=== PATIENT | female | born 1980 | race Caucasian/White ===

== ENCOUNTER 2020-11-11 16:36 | Emergency (ER) | payer MEDICAID ==
[~2020-11-11] VITALS: Ht 165.1 cm; Wt 73.9 kg
[2020-11-11] MEDS ORDERED: MORPHINE SULFATE 4 MG/ML SYR/VIAL IV ONE (16:45)
[2020-11-11] MEDS ORDERED: ONDANSETRON HCL 4 MG/2 ML VIAL IV ONE (16:45)
[2020-11-11] MEDS ORDERED: ASPirin 81 mg TAB PO ONE (16:45)
[2020-11-11 17:10] LABS: Basophils # (auto) 0.1 10 ^3/uL (0-0.2); Basophils % (auto) 1.2 % (0.0-2.0); Eosinophils # (auto) 0.1 10 ^3/uL (0-0.8); Eosinophils % (auto) 2.1 % (0.0-7.0); Hematocrit 35.6 % (36.0-46.0); Hemoglobin 11.8 g/dL (12.2-16.2); Lymphocytes # (auto) 1.3 10 ^3/uL (0.4-5.4); Lymphocytes % (auto) 26.6 % (10.0-50.0); Mean Corpuscular Hemoglobin 27.9 pg (28.0-32.0); Mean Corpuscular Hgb Conc. 33.1 g/dL (32.0-36.0); Mean Corpuscular Volume 84.1 fL (80.0-100.0); Monocytes # (auto) 0.3 10 ^3/uL (0-1.3); Monocytes % (auto) 6.8 % (0.0-12.0); Neutrophils # (auto) 3.2 10 ^3/uL (1.6-8.6); Neutrophils % (auto) 63.3 % (37.0-80.0); Nucleated Red Blood Cells % 0.1 %; Red Blood Cells 4.23 10^6/uL (4.0-5.20); Red Cell Distribution Width 16.9 % (11.8-14.3); White Blood Cell 5.1 10^3/uL (4.4-10.8)
[2020-11-11 17:28] LABS: Anion Gap 3 (5-15); Blood Urea Nitrogen 11 mg/dL (7-18); Calcium 9.3 mg/dL (8.5-10.1); Carbon Dioxide 29 mmol/L (21-32); Chloride 105 mmol/L (98-107); Glucose 104 mg/dL (74-106); Potassium 3.4 mmol/L (3.5-5.1); Sodium 137 mmol/L (136-145)
[2020-11-11 17:33] LABS: Alanine Aminotransferase 23 U/L (13-56); Alkaline Phosphatase 48 U/L (45-117); Aspartate Aminotransferase 16 U/L (15-37); BUN/Creatinine Ratio 10.6; Bilirubin, Total 0.2 mg/dL (0.2-1.0); GFR African American 75 mL/min; GFR Non-African American 62 mL/min
[2020-11-11] MEDS ORDERED: POTASSIUM EFFERVESENT TAB 25 MEQ PO ONE (17:45)
[2020-11-11 18:13] VITALS: BP 138/82
== END 2020-11-11 18:20 | disposition home or self-care (01) ==
LOC: ER 16:36
DX: R07.89 Other chest pain (principal); I10 Essential (primary) hypertension
CPT/HCPCS: 36415; 80053; 84484; 85025; 93005

== ENCOUNTER 2020-11-28 13:02 | Inpatient (IN) | payer MEDICAID ==
[~2020-11-28] VITALS: Ht 165.1 cm; Wt 80.2 kg
[2020-11-28 14:07] LABS: Basophils # (auto) 0.1 10 ^3/uL (0-0.2); Basophils % (auto) 0.9 % (0.0-2.0); Eosinophils # (auto) 0.1 10 ^3/uL (0-0.8); Eosinophils % (auto) 1.5 % (0.0-7.0); Hematocrit 37.5 % (36.0-46.0); Hemoglobin 12.4 g/dL (12.2-16.2); Lymphocytes # (auto) 1.5 10 ^3/uL (0.4-5.4); Lymphocytes % (auto) 22.5 % (10.0-50.0); Mean Corpuscular Hemoglobin 27.3 pg (28.0-32.0); Mean Corpuscular Volume 82.8 fL (80.0-100.0); Monocytes # (auto) 0.4 10 ^3/uL (0-1.3); Monocytes % (auto) 5.7 % (0.0-12.0); Neutrophils # (auto) 4.5 10 ^3/uL (1.6-8.6); Neutrophils % (auto) 69.4 % (37.0-80.0); Red Blood Cells 4.53 10^6/uL (4.0-5.20); Red Cell Distribution Width 16.8 % (11.8-14.3); White Blood Cell 6.5 10^3/uL (4.4-10.8)
[2020-11-28 14:18] LABS: Alanine Aminotransferase 30 U/L (13-56); Albumin 3.4 g/dL (3.4-5.0); Anion Gap 5 (5-15); Blood Urea Nitrogen 18 mg/dL (7-18); Carbon Dioxide 29 mmol/L (21-32); Chloride 105 mmol/L (98-107); Glucose 85 mg/dL (74-106); Potassium 4.1 mmol/L (3.5-5.1); Sodium 139 mmol/L (136-145)
[2020-11-28 14:23] LABS: Alkaline Phosphatase 60 U/L (45-117); Aspartate Aminotransferase 19 U/L (15-37); BUN/Creatinine Ratio 17.8; Bilirubin, Total 0.2 mg/dL (0.2-1.0); GFR African American 77 mL/min; GFR Non-African American 64 mL/min; Total Protein 7.8 g/dL (6.4-8.2)
[2020-11-28] MEDS ORDERED: ACETAMINOPHEN 325 MG TAB PO ONE (21:00)
[2020-11-28 21:17] LABS: Urine Bacteria FEW /hpf (None Seen); Urine Blood Negative /uL (Negative); Urine Mucus FEW (None Seen); Urine Specific Gravity 1.029 (1.001-1.035); Urine WBC 11 /hpf (0 - 5)
[2020-11-28] MEDS ORDERED: NITROGLYCERIN 0.4 MG SL TAB SL PRN (23:15)
[2020-11-28] MEDS ORDERED: ONDANSETRON HCL 4 MG/2 ML VIAL IV PRN (23:15)
[2020-11-28] MEDS ORDERED: DOCUSATE SOD 100 MG CAP PO PRN (23:15)
[2020-11-28] MEDS ORDERED: ACETAMINOPHEN 325 MG TAB PO PRN (23:15)
[2020-11-29 01:00] VITALS: BP 120/82
[2020-11-29] MEDS: HYDROmorphone HCL 2 MG/ML VL IV PRN ×4 (03:05→21:46)
[2020-11-29 05:00] VITALS: BP 137/78
[2020-11-29] MEDS: hydrALAZINE HCL 20 MG/ML VL IV SCH ×2 (06:00)
[2020-11-29 06:23] LABS: Basophils # (auto) 0 10 ^3/uL (0-0.2); Basophils % (auto) 0.7 % (0.0-2.0); Eosinophils # (auto) 0.1 10 ^3/uL (0-0.8); Eosinophils % (auto) 1.7 % (0.0-7.0); Hematocrit 33.2 % (36.0-46.0); Hemoglobin 11.1 g/dL (12.2-16.2); Lymphocytes # (auto) 2.1 10 ^3/uL (0.4-5.4); Lymphocytes % (auto) 30.2 % (10.0-50.0); Mean Corpuscular Hemoglobin 28.1 pg (28.0-32.0); Mean Corpuscular Hgb Conc. 33.4 g/dL (32.0-36.0); Monocytes # (auto) 0.4 10 ^3/uL (0-1.3); Monocytes % (auto) 6.2 % (0.0-12.0); Neutrophils # (auto) 4.2 10 ^3/uL (1.6-8.6); Neutrophils % (auto) 61.2 % (37.0-80.0); Nucleated Red Blood Cells % 0.1 %; Red Blood Cells 3.95 10^6/uL (4.0-5.20); Red Cell Distribution Width 16.6 % (11.8-14.3); White Blood Cell 6.9 10^3/uL (4.4-10.8)
[2020-11-29] MEDS ORDERED: HYDR25TA4 PO (06:48)
[2020-11-29 06:58] LABS: Potassium 3.6 mmol/L (3.5-5.1)
[2020-11-29 07:06] LABS: BUN/Creatinine Ratio 15.7; Bilirubin, Total 0.4 mg/dL (0.2-1.0); Calcium 9.1 mg/dL (8.5-10.1); Total Protein 6.6 g/dL (6.4-8.2)
[2020-11-29] MEDS ORDERED: ADENOSINE 65 MG in GIVE UN-DILUTED 0 ML IV STA (07:43)
[2020-11-29 08:57] LABS: Barbiturate Scree,Urine NEGATIVE (NEGATIVE); Benzodiazephine Screen, Urine NEGATIVE (NEGATIVE); Cannabinoid Screen, Urine POSITIVE (NEGATIVE)
[2020-11-29 09:00] VITALS: BP 120/83
[2020-11-29 09:04] LABS: Amphetamine Screen, Urine NEGATIVE (NEGATIVE); Cocaine Screen, Urine NEGATIVE (NEGATIVE); Opiate Scree,Urine NEGATIVE (NEGATIVE); Phencyclidine Screen, Urine NEGATIVE (NEGATIVE)
[2020-11-29] MEDS: ENOXAPARIN SOD 30 MG/0.3 ML SYRINGE SC SCH (10:00)
[2020-11-29] MEDS: ASPirin 81 mg TAB PO SCH (10:30)
[2020-11-29] MEDS: ZINC SULFATE 220mg CAP or TAB PO SCH (10:30)
[2020-11-29] MEDS: HCTZ 25 MG TAB PO SCH (10:30)
[2020-11-29] MEDS: cefTRIAXone 1GM/50ML D5W 50 ML IV SCH (10:30)
[2020-11-29] MEDS: FAMOTIDINE (10MG/ML) 2ML VL IV SCH ×2 (10:30→21:46)
[2020-11-29] MEDS: MULTIPLE VITAMIN TAB PO SCH (10:30)
[2020-11-29] MEDS: ASCORBIC ACID 500 MG TAB PO SCH ×2 (10:30→21:46)
[2020-11-29] MEDS ORDERED: hydrALAZINE HCL 20 MG/ML VL IV PRN (11:30)
[2020-11-29 12:50] VITALS: BP 154/89
[2020-11-29 21:30] VITALS: BP 125/95
[2020-11-29] MEDS ORDERED: ATORVASTATIN 20 MG TAB PO SCH (22:00)
[2020-11-30 05:53] VITALS: BP 135/79
[2020-11-30 08:00] VITALS: BP 135/92
[2020-11-30 09:00] VITALS: BP 135/92
[2020-11-30] MEDS: cefTRIAXone 1GM/50ML D5W 50 ML IV SCH (09:20)
[2020-11-30] MEDS: ASPirin 81 mg TAB PO SCH (09:20)
[2020-11-30] MEDS: FAMOTIDINE (10MG/ML) 2ML VL IV SCH (09:20)
[2020-11-30] MEDS: ZINC SULFATE 220mg CAP or TAB PO SCH (09:21)
[2020-11-30] MEDS: MULTIPLE VITAMIN TAB PO SCH (09:23)
[2020-11-30] MEDS: ASCORBIC ACID 500 MG TAB PO SCH (09:23)
[2020-11-30] MEDS: ENOXAPARIN SOD 30 MG/0.3 ML SYRINGE SC SCH (09:23)
[2020-11-30] MEDS: HCTZ 25 MG TAB PO SCH (09:23)
[2020-11-30] MEDS: HYDROmorphone HCL 2 MG/ML VL IV PRN (09:50)
[2020-11-30 13:00] VITALS: BP 124/92
[2020-11-30 14:55] VITALS: BP 124/92
== END 2020-11-30 16:00 | disposition home or self-care (01) | DRG 203 ==
LOC: EDBD 13:02 → ER 13:02 → TELE 23:04 → TELE-WESTW 11-29 00:19
PROVIDERS: ADMIT Nurse Practitioner Family; ATTEND Family Medicine
DX: R07.89 Other chest pain (principal); F12.90 Cannabis use, unspecified, uncomplicated; R00.2 Palpitations; I10 Essential (primary) hypertension; N39.0 Urinary tract infection, site not specified; Z20.822 Contact with and (suspected) exposure to COVID-19; Z88.5 Allergy status to narcotic agent; Z72.0 Tobacco use; Z71.6 Tobacco abuse counseling; Z82.49 Family history of ischemic heart disease and other diseases of the circulatory system; Z83.3 Family history of diabetes mellitus
CPT/HCPCS: 36415; 71045; 78452; 80053; 80061; 80307; 81001; 81025; 84443; 84484; 85025; 87086; 87426; 93005; 93017; 93306; 96365; 96367; 96375; G0378; J0153; J0696; J2405; J3490

== ENCOUNTER 2021-01-14 11:51 | Emergency (ER) | payer MEDICAID ==
[~2021-01-14 11:51] MED LIST: HYDR25TA4 PO
[2021-01-14] MEDS ORDERED: ASPirin 81 mg TAB PO ONE (12:00)
[2021-01-14 12:31] LABS: Basophils # (auto) 0.1 10 ^3/uL (0-0.2); Eosinophils # (auto) 0.1 10 ^3/uL (0-0.8); Eosinophils % (auto) 2.2 % (0.0-7.0); Hematocrit 35.6 % (36.0-46.0); Hemoglobin 11.8 g/dL (12.2-16.2); Lymphocytes # (auto) 1.5 10 ^3/uL (0.4-5.4); Lymphocytes % (auto) 29.3 % (10.0-50.0); Mean Corpuscular Hemoglobin 27.7 pg (28.0-32.0); Mean Corpuscular Hgb Conc. 33.3 g/dL (32.0-36.0); Mean Corpuscular Volume 83.2 fL (80.0-100.0); Monocytes # (auto) 0.4 10 ^3/uL (0-1.3); Monocytes % (auto) 7.2 % (0.0-12.0); Neutrophils # (auto) 3.1 10 ^3/uL (1.6-8.6); Neutrophils % (auto) 60.3 % (37.0-80.0); Nucleated Red Blood Cells % 0.1 %; Red Blood Cells 4.28 10^6/uL (4.0-5.20); Red Cell Distribution Width 16.4 % (11.8-14.3); White Blood Cell 5.1 10^3/uL (4.4-10.8)
[2021-01-14 12:44] LABS: Chloride 105 mmol/L (98-107); Sodium 135 mmol/L (136-145)
[2021-01-14 12:53] LABS: Alanine Aminotransferase 25 U/L (13-56); Albumin 3.4 g/dL (3.4-5.0); Alkaline Phosphatase 62 U/L (45-117); Anion Gap 4 (5-15); Aspartate Aminotransferase 17 U/L (15-37); Bilirubin, Total 0.2 mg/dL (0.2-1.0); Blood Urea Nitrogen 15 mg/dL (7-18); Calcium 9.5 mg/dL (8.5-10.1); Carbon Dioxide 26 mmol/L (21-32); GFR African American 84 mL/min; GFR Non-African American 69 mL/min; Glucose 89 mg/dL (74-106); Total Protein 7.3 g/dL (6.4-8.2)
[2021-01-14] MEDS ORDERED: SODIUM CHLOR 0.9% PF (SALINE LOCK) 10ML VIAL/SYR IV SCH (14:00)
[2021-01-14 16:31] VITALS: BP 126/94
== END 2021-01-14 16:34 | disposition home or self-care (01) ==
LOC: EDBD 11:51 → ER 11:51
DX: R07.89 Other chest pain (principal); I10 Essential (primary) hypertension; Z79.899 Other long term (current) drug therapy; Z88.5 Allergy status to narcotic agent
CPT/HCPCS: 36415; 71045; 80053; 81025; 84484; 85025; 93005

== ENCOUNTER 2021-01-15 13:03 | Emergency (ER) | payer MEDICAID ==
[~2021-01-15] VITALS: Ht 165.1 cm; Wt 79.4 kg
[2021-01-15 15:00] LABS: Basophils # (auto) 0.1 10 ^3/uL (0-0.2); Eosinophils # (auto) 0.1 10 ^3/uL (0-0.8); Hemoglobin 12.7 g/dL (12.2-16.2); Mean Corpuscular Volume 82.9 fL (80.0-100.0); Monocytes # (auto) 0.4 10 ^3/uL (0-1.3)
[2021-01-15 15:01] LABS: Hematocrit 39.6 % (36.0-46.0); Lymphocytes % (auto) 32.4 % (10.0-50.0); Mean Corpuscular Hemoglobin 26.7 pg (28.0-32.0); Mean Corpuscular Hgb Conc. 32.2 g/dL (32.0-36.0); Monocytes % (auto) 6.1 % (0.0-12.0); Neutrophils # (auto) 3.6 10 ^3/uL (1.6-8.6); Neutrophils % (auto) 58.5 % (37.0-80.0); Nucleated Red Blood Cells % 0.1 %; Red Blood Cells 4.77 10^6/uL (4.0-5.20); Red Cell Distribution Width 16.7 % (11.8-14.3); White Blood Cell 6.1 10^3/uL (4.4-10.8)
[2021-01-15 15:27] LABS: Calcium 9.8 mg/dL (8.5-10.1)
[2021-01-15 15:29] LABS: BUN/Creatinine Ratio 13.3
[2021-01-15 15:53] LABS: Urine Bacteria NONE SEEN /hpf (None Seen); Urine Blood TRACE /uL (Negative); Urine Hyaline Cast FEW /lpf (0 - 2); Urine Mucus FEW (None Seen); Urine Specific Gravity 1.018 (1.001-1.035); Urine WBC 3 /hpf (0 - 5)
[2021-01-15] MEDS ORDERED: KETOROLAC TROMETH 60MG/2ML VIAL IM ONE (16:00)
[2021-01-15 16:26] VITALS: BP 134/95
== END 2021-01-15 17:30 | disposition home or self-care (01) ==
LOC: ER 13:03 → EDBD 13:03 → ER 16:36
DX: R31.9 Hematuria, unspecified (principal); N20.0 Calculus of kidney; I10 Essential (primary) hypertension; Z79.899 Other long term (current) drug therapy; Z88.5 Allergy status to narcotic agent
CPT/HCPCS: 36415; 74176; 80048; 81001; 85025; 96372; 99284; J1885

== ENCOUNTER 2024-08-17 10:57 | Inpatient (IN) | payer MEDICAID ==
[~2024-08-17] VITALS: Ht 167.6 cm; Wt 84.1 kg
[~2024-08-17 10:57] MED LIST changes: +METH4PAK PO; +ONDA-144 PO; +PANT40TA2 PO; +PRED1PAK9 PO
--- NOTE | 2024-08-17 12:01 | DVH ---
XY CHEST PORTABLE, HISTORY: chest pain COMPARISON: CHEST PORTABLE on DOS: 01/14/21, CHEST PORTABLE on DOS: 11/28/20 CHEST PORTABLE on DOS: 01/14/21, CHEST PORTABLE on DOS: 11/28/20 TECHNICAL DATA: 1 view of the chest was obtained. FINDINGS: Lines and tubes: None Cardiomediastinal silhouette: normal Pulmonary vasculature: normal Lung expansion: normal Lung airspace: normal Lung interstitium: normal Pleura: normal Pneumothorax: no Bones: Unremarkable Other: no IMPRESSION: No acute intrathoracic abnormality.
[2024-08-17 12:02] LABS: Chloride 104 mmol/L (98-107); Potassium 3.8 mmol/L (3.5-5.1); Sodium 139 mmol/L (136-145)
--- NOTE | 2024-08-17 12:02 | ED.PDOC ---
History of Present Illness HPI Comments 44-year-old female brought in by ambulance with prior medical history of hypertension, kidney stone; surgical history, right ovary sx, ectopic energy chest pain. Patient reports on having left-sided chest pain which started last night at 9:00 p.m. she has had sweats, weakness patient notes that she has had a stress test before and it was normal. Denies chills, fever, N/V/D, SOB. No other associated symptoms, modifiers, recent injuries or sick contacts present at this time. Chief Complaint: Chest Pain Time Seen by MD: 11:35 Primary Care Provider: [facility]IL[facility] Dalton Notes: Nurses Notes, Salvationist Notes, Medications, Allergies Allergies: Coded Allergies: Codeine (Verified Allergy, Severe, 11/11/20) Home Meds Active Scripts Pantoprazole Sodium Sesquihydr (Protonix) 40 Mg Tab, 40 MG PO DAILY PRN for 7 Days, #7 TAB Prov:RAZ BAILON MD 08/10/21 Prednisone (Prednisone) 10 Mg Roshan, 10 MG PO DAILY for 7 Days, #7 PACK Prov:RAZ BAILON MD 08/10/21 Ondansetron (Zofran) 4 Mg Tab, 4 MG PO Q8HP PRN for 5 Days, #10 MG Prov:ALISA DIAZ MD 05/01/21 Methylprednisolone (Medrol Dosepak) 4 Mg Roshan, 4 MG PO UD, #21 TAB UAD Prov:ALISA DIAZ MD 05/01/21 Reported Medications Hydrochlorothiazide (Hydrochlorothiazide) 25 Mg Tab, 25 MG PO DAILY for 30 Days, MG 11/29/20 Information Source: Patient Mode of Arrival: EMS Severity: Moderate Timing: Hours Duration: Since onset, Hours Prehospital treatment: None Past Medical History PAST MEDICAL HISTORY: HTN, Kidney Stones Surgical History (Other): right ovary surgery 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 Family History Family History: Reviewed,noncontributory to illness, Unknown Social History Smoker: Unknown Alcohol: Unknown Drugs: Unknown Lives In: Home Constitutional: reports: weakness; denies: chills, diaphoresis, fatigue, fever, malaise, sweats, others EENTM: denies: blurred vision, double vision, ear bleeding, ear discharge, ear drainage, ear pain, ear ringing, eye pain, eye redness, hearing loss, mouth pain, mouth swelling, nasal discharge, nose bleeding, nose congestion, nose pain, photophobia, tearing, throat pain, throat swelling, voice changes, others Respiratory: denies: cough, hemoptysis, orthopnea, SOB at rest, shortness of breath, SOB with excertion, stridor, wheezing, others Cardiovascular: reports: chest pain; denies: dizzy spells, diaphoresis, Dyspnea on exertion, edema, irregular heart beat, left arm pain, lightheadedness, p alpitations, PND, syncope, others Gastrointestinal: denies: abdomen distended, abdominal pain, blood streaked bowels, constipated, diarrhea, dysphagia, difficulty swallowing, hematemesis, melena, nausea, poor appetite, poor fluid intake, rectal bleeding, rectal pain, vomiting, others Genitourinary: denies: abnormal vagina bleeding, burning, dyspareunia, dysuria, flank pain, frequency, hematuria, incontinence, pain, , vagina discharge, urgency, others Neurological: denies: dizziness, fainting, headache, left sided numbness, left sided weakness, numbness, paresthesia, pre-existing deficit, right sided numbness, right sided weakness, seizure, speech problems, tingling, tremors, weakness, others Musculoskeletal: denies: back pain, gout, joint pain, joint swelling, muscle pain, muscle stiffness, neck pain, others Integumetry: denies: bruises, change in color, change in hair/nails, dryness, laceration, lesions, lumps, rash, wounds, others Allergic/Immunocompromised: denies: Difficulty Healing, Frequent Infections, Hives, Itching, others Hematologic/Lymphatic: denies: anemia, blood clots, easy bleeding, easy bruising, swollen glands, others Endocrine: denies: excessive hunger, excessive sweating, excessive thirst, excessive urination, flushing, intolerance to cold, intolerance to heat, unexplained weight gain, unexplained weight loss, others Psychiatric: denies: anxiety, bipolar disorder, depression, hopeless, panic disorder, schizophrenia, sleepless, suicidal, others All Other Systems: Reviewed and Negative Physical Exam General Appearance: No Apparent Distress, Normal HEENT: Normal ENT Inspection, Pharynx Normal, TMs Normal Neck: Full Range of Motion, Non-Tender, Normal, Normal Inspection Respiratory: Chest Non-Tender, Lungs Clear, No Accessory Muscle Use, No Respiratory Distress, Normal Breath Sounds Cardiovascular: No Edema, No JVD, No Murmur, No Gallop, Normal Peripheral Pulses, Regular Rate/Rhythm Breast Exam: Deferred Gastrointestinal: No Organomegaly, Non Tender, No Pulsatile Mass, Normal Bowel Sounds, Soft Genitalia: Deferred Pelvic: Deferred Rectal: Deferred Extremities: No calf tenderness, Normal capillary refill, Normal inspection, Normal range of motion, Non-tender, No pedal edema Musculoskeletal : Apperance: Normal Neurologic: Alert, information technology instructor II-XII nml as Tested, No Motor Deficits, Normal Affect, Normal Mood, No Sensory Deficits Cerebellar Function: Normal Reflexes: Normal Skin: Dry, Normal Color, Warm Lymphatic: No Adenopathy Was a procedure done? Was a procedure done?: No Differential Dx Considerations may include: ACS, CVA, viral syndrome, pneumonia, bronchitis, GERD X-Ray, Labs, Meds, VS Vital Signs Date Time Temp Pulse Resp B/P (MAP) Pulse Ox O2 Delivery O2 Flow Rate FiO2 08/17/24 12:55 98.7 74 18 123/83 (96) 100 98.7 08/17/24 11:05 78 08/17/24 11:00 97.8 82 18 107/78 (88) 98 97.8 Lab Test 08/17/24 11:58 08/17/24 11:09 Range/Units Troponin I High Sensitivity < 3 L < 3 L </=34 ng/L White Blood Count 4.1 L 4.4-10.8 10^3/uL Red Blood Count 4.69 4.0-5.20 10^6/uL Hemoglobin 10.9 L 12.2-16.2 g/dL Hematocrit 34.5 L 36.0-46.0 % Mean Corpuscular Volume 73.6 L 80.0-100.0 fL Mean Corpuscular Hemoglobin 23.3 L 28.0-32.0 pg Mean Corpuscular Hemoglobin Concent 31.7 L 32.0-36.0 g/dL Red Cell Distribution Width 17.9 H 11.8-14.3 % Platelet Count 279 140-450 10^3/uL Mean Platelet Volume 7.4 6.9-10.8 fL Neutrophils (%) (Auto) 53.5 37.0-80.0 % Lymphocytes (%) (Auto) 36.5 10.0-50.0 % Monocytes (%) (Auto) 5.7 0.0-12.0 % Eosinophils (%) (Auto) 3.3 0.0-7.0 % Basophils (%) (Auto) 1.0 0.0-2.0 % Neutrophils # (Auto) 2.2 1.6-8.6 10 ^3/uL Lymphocytes # (Auto) 1.5 0.4-5.4 10 ^3/uL Monocytes # (Auto) 0.2 0-1.3 10 ^3/uL Eosinophils # (Auto) 0.1 0-0.8 10 ^3/uL Basophils # (Auto) 0 0-0.2 10 ^3/uL Nucleated Red Blood Cells 0.1 % Sodium Level 139 136-145 mmol/L Potassium Level 3.8 3.5-5.1 mmol/L Chloride Level 104 98-107 mmol/L Carbon Dioxide Level 27 20-31 mmol/L Anion Gap 8 5-15 Blood Urea Nitrogen 16 9-23 mg/dL Creatinine 1.08 H 0.550-1.02 mg/dL Glomerular Filtration Rate Calc 64 >90 mL/min BUN/Creatinine Ratio 14.8 10.0-20.0 Serum Glucose 96 74-106 mg/dL Calcium Level 10.6 H 8.7-10.4 mg/dL Current Medications Medications (Trade) Dose Ordered Sig/Giuseppe Route Start Time Stop Time Status Last Admin Al Hydrox/Mg Hydrox/Simethicone (Maalox Plus) 15 ml ONCE ONCE PO 08/17/24 11:45 08/17/24 11:46 DC 08/17/24 12:04 Famotidine (Pepcid Tablet) 20 mg ONCE ONCE PO 08/17/24 11:45 08/17/24 11:46 DC 08/17/24 12:04 Time of 1ST Reevaluation: 12:05 Reevaluation 1ST: Unchanged Patient Education/Counseling: Diagnosis, Treatment, Prognosis Family Education/Counseling: No Family Present Departure 1 Departure Time of Disposition: 13:48 (Patient presented with chest pain that was concer solo for possible STEMI, ACS, PE, Pneumonia, Muscle Strain, COPD, Dissection. Data: 1. I ordered and reviewed the result of at least 3 labs including a CBC, BMP, and Troponin. 2. I independently interpreted the following tests: EKG which shows sinus arrhythmia and Chest X-ray which shows benign chest.Risk:This patient has a high risk of morbidity due to further diagnostic testing or treatment and may suffer from an acute cardiac or respiratory disorder. Workup reveals concern for ACS and patient should be admitted for further workup and possible expert consultation. ) Impression: Primary Impression: Acute chest pain Additional Impression: Shortness of breath Disposition: ADMITTED INPATIENT Admit to: Med Surg Condition: Serious Critical Care Note Critical Care Time?: Yes Critical care comment: Acute chest pain Authorized and Performed by: Veronica See MD Total critical care time: Approximately 37 minutes Due to a high probability of clinically significant, life threatening deterioration, the patient required my highest level of preparedness to intervene emergently and I personally spent this critical care time directly and personally managing the patient. This critical care time included obtaining a history; examining the patient; pulse oximetry; ordering and review of studies; arranging urgent treatment with development of a management plan; evaluation of patient's response to treatment; frequent reassessment; and, discussions with other providers. This critical care time was performed to assess and manage the high probability of imminent, life-threatening deterioration that could result in multi-organ failure. It was exclusive of separately billable procedures and treating other patients and teaching time. Please see my other sections and the rest of the note for further information on patient assessment and treatment. Stability Stability form required: No I personally scribed for VERONICA SEE MD ([email or web address]) on 08/17/24 at 12:02. Electronically submitted by Akbar Ojeda ([email or web address]). VERONICA SEE MD August 17, 2024 12:02
[2024-08-17 12:03] LABS: Anion Gap 8 (5-15); Carbon Dioxide 27 mmol/L (20-31)
[2024-08-17] MEDS: FAMOTIDINE 20 MG TAB PO ONE (12:04)
[2024-08-17] MEDS: MAALOX PLUS or MAALOX 30 ML PO ONE (12:04)
[2024-08-17 12:07] LABS: Calcium 10.6 mg/dL (8.7-10.4)
[2024-08-17 12:08] LABS: BUN/Creatinine Ratio 14.8 (10.0-20.0); Blood Urea Nitrogen 16 mg/dL (9-23); Glucose 96 mg/dL (74-106)
[2024-08-17 12:17] LABS: Basophils # (auto) 0 10 ^3/uL (0-0.2); Eosinophils # (auto) 0.1 10 ^3/uL (0-0.8); Eosinophils % (auto) 3.3 % (0.0-7.0); Hematocrit 34.5 % (36.0-46.0); Hemoglobin 10.9 g/dL (12.2-16.2); Lymphocytes # (auto) 1.5 10 ^3/uL (0.4-5.4); Lymphocytes % (auto) 36.5 % (10.0-50.0); Mean Corpuscular Hemoglobin 23.3 pg (28.0-32.0); Mean Corpuscular Hgb Conc. 31.7 g/dL (32.0-36.0); Mean Corpuscular Volume 73.6 fL (80.0-100.0); Monocytes # (auto) 0.2 10 ^3/uL (0-1.3); Monocytes % (auto) 5.7 % (0.0-12.0); Neutrophils # (auto) 2.2 10 ^3/uL (1.6-8.6); Neutrophils % (auto) 53.5 % (37.0-80.0); Nucleated Red Blood Cells % 0.1 %; Platelet Count (auto) 279 10^3/uL (140-450); Red Blood Cells 4.69 10^6/uL (4.0-5.20); Red Cell Distribution Width 17.9 % (11.8-14.3); White Blood Cell 4.1 10^3/uL (4.4-10.8)
[2024-08-17] MEDS ORDERED: NITROGLYCERIN 0.4 MG SL TAB SL PRN (15:30)
[2024-08-17] MEDS ORDERED: ONDANSETRON HCL 4 MG/2 ML VIAL IV PRN (15:30)
[2024-08-17] MEDS ORDERED: MORPHINE SULFATE INJ 2 MG/ml SYRG IV PRN (15:30)
[2024-08-17] MEDS ORDERED: traMADol HCL 50 MG TAB PO PRN (15:30)
[2024-08-17] MEDS ORDERED: DOCUSATE SOD 100 MG CAP PO PRN (15:30)
[2024-08-17] MEDS ORDERED: ATOR20TA50 PO (15:33)
--- NOTE | 2024-08-17 15:47 | DVHHP2 ---
History of Present Illness Reason for Visit: chest Pain History of Present Illness 44-year-old female brought in by ambulance for chest pain. Patient describes pain as left-sided chest pain starting last night at 9:00 p.m., she also endorsed feeling sweaty, and week, patient has had a stress test in the past which was normal. Nausea/vomiting/diarrhea, no shortness of breath, fever or chills, denies any sick contacts. Patient states she now feels a little better but is still having some sized body weakness. Troponins were negative. Chest x- ray was normal. We will admit patient to telemetry and monitor overnight. Past Medical History Hypertension, kidney stone Past Surgical History Right ovary surgery and ectopic Family History Patient denies Smoke: <1 pack per day (1/2 ppd x20 years) ALCOHOL: none Drugs: None Lives: with Family Review of Systems Constitutional: Yes: Weakness; No: Fever, Chills, Sweats, Malaise, Other Eyes: No: Pain, Vision change, Conjunctivae inflammation, Eyelid inflammation, Other, Redness ENT: No: Ear pain, Ear discharge, Nose pain, Nose discharge, Nose congestion, Mouth pain, Mouth swelling, Throat pain, Throat swelling, Other Respiratory: No: Cough, Dry, Shortness of breath, SOB with excertion, Wheezing, Hemoptysis, Pleuritic Pain, Sputum, Wheezing, Other Cardiovascular: Chest Pain; No: Palpitations, Orthopnea, Paroxysmal Noc. Dyspnea, Edema, Lt Headedness, Other Gastrointestinal: No: Nausea, Vomiting, Abdominal Pain, Diarrhea, Constipation, Melena, Hematochezia, Other Genitourinary: No Dysuria, No Frequency, No Incontinence, No Hematuria, No Retention, No Other Musculoskeletal: No: other, neck pain, shoulder pain, arm pain, back pain, hand pain, leg pain, foot pain Skin: No: Rash, Lesions, Jaundice, Bruising, Other Neurological: No: Weakness, Numbness, Incoordination, Change in speech, Confusion, Seizures, Other Allergies: Coded Allergies: Codeine (Verified Allergy, Severe, 11/11/20) Medications Current Medications Medications Dose Ordered Sig/Giuseppe Route Start Time Stop Time Status Last Admin Dose Admin Acetaminophen 325 mg Q4HP PRN PO 08/17/24 15:30 UNV Ondansetron HCl 4 mg Q4HP PRN IV 08/17/24 15:30 UNV Docusate Sodium 100 mg BIDPRN PRN PO 08/17/24 15:30 UNV Tramadol HCl 50 mg Q6HP PRN PO 08/17/24 15:30 UNV Nitroglycerin 0.4 mg Q5MINP PRN SL 08/17/24 15:30 UNV Morphine Sulfate 2 mg Q30M PRN IV 08/17/24 15:30 UNV Pantoprazole Sodium 40 mg DAILY@0600 PO 08/18/24 06:00 UNV Hydrochlorothiazide 25 mg DAILY PO 08/18/24 10:00 UNV Atorvastatin Calcium 20 mg DAILY PO 08/18/24 10:00 UNV Exam Vital Signs Vital Signs Date Time Temp Pulse Resp B/P (MAP) Pulse Ox O2 Delivery O2 Flow Rate FiO2 08/17/24 12:55 98.7 74 18 123/83 (96) 100 98.7 General Appearance: Alert, Oriented X3, Cooperative, No acute distress HEENT: Atraumatic, PERRLA, EOMI, Mucous membr. moist/pink Respiratory: Clear to auscultation, Normal air movement Cardiovascular: Regular rate, Normal S1, Normal S2, No murmurs Abdominal: Normal bowel sounds, Soft, No tenderness, No hepatospenomegaly, No masses Extremities: No clubbing, No cyanosis, No edema, Normal pulses, No tenderness/swelling Skin: No rashes, No breakdown, No significant lesion Neuro: Normal gait, Normal speech, Strength at 5/5 X4 ext, Normal tone, Sensation intact, Cranial nerves 3-12 NL, Reflexes 2+ Psych/Mental Status: Mental status NL, Mood NL Labs/Xrays Reviewed Labs Test 08/17/24 11:58 08/17/24 11:09 Range/Units Troponin I High Sensitivity < 3 L </=34 ng/L White Blood Count 4.1 L 4.4-10.8 10^3/uL Red Blood Count 4.69 4.0-5.20 10^6/uL Hemoglobin 10.9 L 12.2-16.2 g/dL Hematocrit 34.5 L 36.0-46.0 % Mean Corpuscular Volume 73.6 L 80.0-100.0 fL Mean Corpuscular Hemoglobin 23.3 L 28.0-32.0 pg Mean Corpuscular Hemoglobin Concent 31.7 L 32.0-36.0 g/dL Red Cell Distribution Width 17.9 H 11.8-14.3 % Platelet Count 279 140-450 10^3/uL Mean Platelet Volume 7.4 6.9-10.8 fL Neutrophils (%) (Auto) 53.5 37.0-80.0 % Lymphocytes (%) (Auto) 36.5 10.0-50.0 % Monocytes (%) (Auto) 5.7 0.0-12.0 % Eosinophils (%) (Auto) 3.3 0.0-7.0 % Basophils (%) (Auto) 1.0 0.0-2.0 % Neutrophils # (Auto) 2.2 1.6-8.6 10 ^3/uL Lymphocytes # (Auto) 1.5 0.4-5.4 10 ^3/uL Monocytes # (Auto) 0.2 0-1.3 10 ^3/uL Eosinophils # (Auto) 0.1 0-0.8 10 ^3/uL Basophils # (Auto) 0 0-0.2 10 ^3/uL Nucleated Red Blood Cells 0.1 % Sodium Level 139 136-145 mmol/L Potassium Level 3.8 3.5-5.1 mmol/L Chloride Level 104 98-107 mmol/L Carbon Dioxide Level 27 20-31 mmol/L Anion Gap 8 5-15 Blood Urea Nitrogen 16 9-23 mg/dL Creatinine 1.08 H 0.550-1.02 mg/dL Glomerular Filtration Rate Calc 64 >90 mL/min BUN/Creatinine Ratio 14.8 10.0-20.0 Serum Glucose 96 74-106 mg/dL Calcium Level 10.6 H 8.7-10.4 mg/dL Assessment/Plan Assessment/Plan Atypical Chest Pain Admit to telemetry for overnight monitoring Troponins negative Chest x-ray no acute abnormalities EKG sinus rhythm ACS protocol p.r.n. Cardiac diet pain medication p.r.n. Chronic Benign essential hypertension Continue home hydrochlorothiazide and atorvastatin VTE prophylaxis not indicated Protonix p.o.- takes omeprazole at home Nicotine dependence Discussed smoking cessation with patient at the bedside for at least 10 minutes Declined nicotine patch at this time Plan discussed with: Patient My Orders Orders - SEBAS BARAJAS Procedure Category Date Status Time Admit ADMIT 08/17/24 Transmitted 15:27 Allergies ODNNA 08/17/24 In Process 15:27 Code Status CODE 08/17/24 Transmitted 15:27 Acetaminophen Tablet PHA 08/17/24 Logged (Tylenol Tablet) 15:30 Ondansetron Hcl PHA 08/17/24 Logged (Zofran) 15:30 Docusate Sodium PHA 08/17/24 Logged Capsule (Colace 15:30 Fall Risk Precautions DONNA 08/17/[address] 15:27 Complete Blood Count LAB 08/18/24 Verified 04:00 Comprehensive LAB 08/18/24 Verified Metabolic Panel 04:00 Cardiac DIET 08/17/24 Transmitted Diet-2gna,Lofat,Lochol Dinner Condition: Fair DONNA 08/17/24 In Process 15:27 Tramadol Hcl (Ultram) PHA 08/17/24 Logged 15:30 Nitroglycerin PHA 08/17/24 Logged Sublingual (Ntrostat 15:30 Morphine Sulfate PHA 08/17/24 Logged Injection 15:30 Stat Ekg For Chest DONNA 08/17/24 In Process Pain 15:27 Notify Md Of Changes DONNA 08/17/24 In Process From Base 15:27 Tinware Lithograph Press Operator For DONNA 08/17/24 In Process 24 Hours 15:27 Emergency Dysrhythmia DONNA 08/17/24 In Process Protocol 15:27 Rhythm Strips Once DONNA 08/17/24 In Process Every Shift 15:27 Oxygen By Nasal RT 08/17/24 Transmitted Cannula 15:27 Pantoprazole Tablet PHA 08/18/24 Logged (Protonix Tablet) 06:00 Hydrochlorothiazide PHA 08/18/24 Logged Tablet (Hydrochlorot 10:00 Atorvastatin (Lipitor) PHA 08/18/24 Logged 10:00 Date of Service: August 17, 2024 Billing Provider: SEBAS BARAJAS Common Visit Codes: [id number] INP/OBS CARE (HIGH) SEBAS BARAJAS August 17, 2024 15:47
--- NOTE | 2024-08-17 17:43 | ECG ---
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
[2024-08-17 19:44] VITALS: PULSE 72; RESP 18; O2SAT 100
[2024-08-17 20:00] VITALS: PULSE 74
[2024-08-17] MEDS: MELATONIN 5 MG TAB PO ONE (21:58)
[2024-08-18] VITALS (7 sets, daily range): BP systolic 115–133; BP diastolic 76–91; PULSE 62–98; RESP 14–19; TEMP 97.3–98.7; O2SAT 97–99
[2024-08-18] MEDS: ACETAMINOPHEN 325 MG TAB PO PRN (02:28)
[2024-08-18] MEDS: PANTOPRAZOLE 40 MG TAB PO SCH (05:21)
[2024-08-18 06:08] LABS: Basophils # (auto) 0 10 ^3/uL (0-0.2); Lymphocytes # (auto) 1.6 10 ^3/uL (0.4-5.4); Monocytes # (auto) 0.3 10 ^3/uL (0-1.3); White Blood Cell 4.5 10^3/uL (4.4-10.8)
[2024-08-18 06:12] LABS: Basophils % (auto) 0.8 % (0.0-2.0); Eosinophils # (auto) 0.2 10 ^3/uL (0-0.8); Eosinophils % (auto) 3.4 % (0.0-7.0); Hematocrit 31.3 % (36.0-46.0); Hemoglobin 10.1 g/dL (12.2-16.2); Lymphocytes % (auto) 35.2 % (10.0-50.0); Mean Corpuscular Hgb Conc. 32.1 g/dL (32.0-36.0); Mean Corpuscular Volume 74.7 fL (80.0-100.0); Monocytes % (auto) 7.3 % (0.0-12.0); Neutrophils # (auto) 2.4 10 ^3/uL (1.6-8.6); Neutrophils % (auto) 53.3 % (37.0-80.0); Nucleated Red Blood Cells % 0.1 %; Platelet Count (auto) 231 10^3/uL (140-450); Red Blood Cells 4.19 10^6/uL (4.0-5.20); Red Cell Distribution Width 18.3 % (11.8-14.3)
[2024-08-18 06:36] LABS: Alanine Aminotransferase 22 U/L (7-40); Albumin 4.5 g/dL (3.2-4.8); Alkaline Phosphatase 57 U/L (46-116); Anion Gap 10 (5-15); Aspartate Aminotransferase 21 U/L (13-40); BUN/Creatinine Ratio 11.8 (10.0-20.0); Bilirubin, Total 0.4 mg/dL (0.2-1.0); Blood Urea Nitrogen 11 mg/dL (9-23); Calcium 9.6 mg/dL (8.7-10.4); Carbon Dioxide 22 mmol/L (20-31); Chloride 104 mmol/L (98-107); Glucose 82 mg/dL (74-106); Potassium 3.5 mmol/L (3.5-5.1); Sodium 136 mmol/L (136-145); Total Protein 7.2 g/dL (5.7-8.2)
[2024-08-18] MEDS: hydroCHLOROthiazide 25 MG TAB PO SCH (09:25)
[2024-08-18] MEDS: ATORVASTATIN 20 MG TAB PO SCH (09:26)
[2024-08-18 12:22] LABS: Urine Bacteria None Seen /hpf (None Seen)
[2024-08-18 12:36] LABS: Urine Blood Negative /uL (Negative); Urine Clarity Clear (Clear); Urine Color Colorless (Yellow); Urine Protein, UAD Negative (Negative); Urine Specific Gravity 1.012 (1.001-1.035); Urine Squamous Epithelial Cell FEW /hpf (<5); Urine Urobilinogen Normal (Negative); Urine WBC < 1 /HPF (0-5)
[2024-08-18 12:46] LABS: Amphetamine Screen, Urine Neg (NEGATIVE); Barbiturate Scree,Urine Neg (NEGATIVE); Benzodiazephine Screen, Urine Neg (NEGATIVE); Cannabinoid Screen, Urine Pos (NEGATIVE); Cocaine Screen, Urine Neg (NEGATIVE); Opiate Scree,Urine Neg (NEGATIVE); Phencyclidine Screen, Urine Neg (NEGATIVE)
--- NOTE | 2024-08-18 13:00 | DVHCONRES ---
Date Seen: August 18, 2024 Resident Creating Document: BLAKE SWENSON RESIDENT Referring Physician DR KEARNEY Reason for Consultation Chest pain History of Present Illness 44 year old female with past medical history of hypertension, tobacco use disorder, anxiety presented with complaints of chest pain since Wednesday. She described chest pain as initially diffuse over the chest and later the pain moved to the left side of the chest, was sharp and pressure like, improved with rest and mildly increased with activity, and radiating to the back. She also mentioned associated palpitations. Patient mentioned she has been feeling similar type of chest pain on and off for last 1 year. Pt also mentioned associated sweating. Pt was admitted with similar symptoms on and off in 2020 had Nuclear stress test done which showed NORMAL results had echo in 2020 which showed mild conc LVH, mild Aortic root dilation EF 60%, RVSP 30 Mild TR Cardiology was consulted for chest pain evaluation Family history not significant Social history 6-7 cigarettes every day X 20 yrs occasional marijuana denied alcohol, and other drugs Past Medical History Hypertension Anxiety GERD Family History: Cardiovascular disease G8 FATHER Diabetes mellitus G8 MOTHER Allergies: Coded Allergies: Codeine (Verified Allergy, Severe, 11/11/20) Home Meds Active Scripts Pantoprazole Sodium Sesquihydr (Protonix) 40 Mg Tab, 40 MG PO DAILY PRN for 7 Days, #7 TAB Prov:RAZ BAILON MD 08/10/21 Prednisone (Prednisone) 10 Mg Roshan, 10 MG PO DAILY for 7 Days, #7 PACK Prov:RAZ BAILON MD 08/10/21 Ondansetron (Zofran) 4 Mg Tab, 4 MG PO Q8HP PRN for 5 Days, #10 MG Prov:ALISA DIAZ MD 05/01/21 Methylprednisolone (Medrol Dosepak) 4 Mg Roshan, 4 MG PO UD, #21 TAB UAD Prov:ALISA DIAZ MD 05/01/21 Reported Medications Atorvastatin Calcium (ATORVASTATIN CALCIUM) 20 Mg Tab, 1 TAB PO DAILY 08/17/24 Hydrochlorothiazide (Hydrochlorothiazide) 25 Mg Tab, 25 MG PO DAILY for 30 Days, MG 11/29/20 Current Medications Current Medications Medications (Trade) Dose Ordered Sig/Giuseppe Route PRN Reason Start Time Stop Time Status Last Admin Acetaminophen (Tylenol Tablet) 325 mg Q4HP PRN PO MILD PAIN (1-3 PAIN SCALE) 5/15/25 15:30 08/18/24 02:28 Ondansetron HCl (Zofran) 4 mg Q4HP PRN IV NAUSEA / VOMITING 08/17/24 15:30 Docusate Sodium (Colace Capsule) 100 mg BIDPRN PRN PO FOR CONSTIPATION 08/17/24 15:30 Tramadol HCl (Ultram) 50 mg Q6HP PRN PO SEVERE PAIN (7-10 PAIN SCALE) 08/17/24 15:30 Nitroglycerin (Ntrostat Sublingual) 0.4 mg Q5MINP PRN SL FOR CHEST PAIN 08/17/24 15:30 Morphine Sulfate 2 mg Q30M PRN IV FOR CHEST PAIN 08/17/24 15:30 Pantoprazole Sodium (Protonix Tablet) 40 mg DAILY@0600 PO 08/18/24 06:00 08/18/24 05:21 Hydrochlorothiazide (hydroCHLOROthiazide TABLET) 25 mg DAILY PO 08/18/24 10:00 08/18/24 09:25 Atorvastatin Calcium (Lipitor) 20 mg DAILY PO 08/18/24 10:00 08/18/24 09:26 Alprazolam (Xanax Tablet) 0.25 mg Q8HPRN PRN PO ANXIETY 08/18/24 12:30 Review of Systems as described in the HPI Vital Signs Vital Signs Date Time Temp Pulse Resp B/P (MAP) Pulse Ox O2 Delivery O2 Flow Rate FiO2 08/18/24 09:25 104/64 08/18/24 08:00 62 08/18/24 05:00 97.8 16 99 97.8 08/17/24 19:44 Room Air* 0 21 Physical Exam Examination General Appearance: Alert, Oriented X3, Cooperative, No acute distress HEENT: EOMI Respiratory: Clear to auscultation, Normal air movement Cardiovascular: Regular rate, Normal S1, Normal S2 Abdominal: Normal bowel sounds Extremities: No cyanosis, No edema, Normal pulses, No tenderness/swelling Skin: No rashes, No breakdown Neuro: Normal gait, Normal speech, Strength at 5/5 X4 ext, Normal tone, Sensation intact, Cranial nerves 3-12 NL, Reflexes 2+ Psych/Mental Status: Mental status NL, Mood NL Labs/Diagnostic Data Labs Test 08/18/24 12:06 08/18/24 05:24 08/17/24 11:58 Range/Units White Blood Count 4.5 4.4-10.8 10^3/uL Red Blood Count 4.19 4.0-5.20 10^6/uL Hemoglobin 10.1 L 12.2-16.2 g/dL Hematocrit 31.3 L 36.0-46.0 % Mean Corpuscular Volume 74.7 L 80.0-100.0 fL Mean Corpuscular Hemoglobin 24.0 L 28.0-32.0 pg Mean Corpuscular Hemoglobin Concent 32.1 32.0-36.0 g/dL Red Cell Distribution Width 18.3 H 11.8-14.3 % Platelet Count 231 140-450 10^3/uL Mean Platelet Volume 7.3 6.9-10.8 fL Neutrophils (%) (Auto) 53.3 37.0-80.0 % Lymphocytes (%) (Auto) 35.2 10.0-50.0 % Monocytes (%) (Auto) 7.3 0.0-12.0 % Eosinophils (%) (Auto) 3.4 0.0-7.0 % Basophils (%) (Auto) 0.8 0.0-2.0 % Neutrophils # (Auto) 2.4 1.6-8.6 10 ^3/uL Lymphocytes # (Auto) 1.6 0.4-5.4 10 ^3/uL Monocytes # (Auto) 0.3 0-1.3 10 ^3/uL Eosinophils # (Auto) 0.2 0-0.8 10 ^3/uL Basophils # (Auto) 0 0-0.2 10 ^3/uL Nucleated Red Blood Cells 0.1 % Sodium Level 136 136-145 mmol/L Potassium Level 3.5 3.5-5.1 mmol/L Chloride Level 104 98-107 mmol/L Carbon Dioxide Level 22 20-31 mmol/L Anion Gap 10 5-15 Blood Urea Nitrogen 11 9-23 mg/dL Creatinine 0.93 0.550-1.02 mg/dL Glomerular Filtration Rate Calc 77 >90 mL/min BUN/Creatinine Ratio 11.8 10.0-20.0 Serum Glucose 82 74-106 mg/dL Calcium Level 9.6 8.7-10.4 mg/dL Total Bilirubin 0.4 0.2-1.0 mg/dL Aspartate Amino Transferase (AST) 21 13-40 U/L Alanine Aminotransferase (ALT) 22 7-40 U/L Alkaline Phosphatase 57 46-116 U/L Total Protein 7.2 5.7-8.2 g/dL Albumin 4.5 3.2-4.8 g/dL Troponin I High Sensitivity < 3 L </=34 ng/L Plan/Recommendation Assessment/plan # chest pain, likely due to ?panic attack -Cardiac type of chest pain -EKG Shows no significant ST changes, shows LVH changes -negative trops -Last echo 2020 technically good study sinus rhythm. Normal chamber sizes. Mild concentric LVH. Mild aortic root dilatation. Valves appear to be structurally normal. Left ventricular function is preserved at 60% with normal RV function. Doppler is unremarkable. Mild TR. RVSP of 30 mmHg. No pericardial effusion masses or vegetations. -Nuclear stress test 2020 : WNL #Hypertension #Tobacco use disorder #GERD Plan EKG,Trops IV ativan PRN pt can be considered for outpatient follow up with cardiology for stress test/elective LHC -Awaiting echocardiogram results Case discussion with Dr Yip Plan discussed with: Patient BLAKE SWENSON RESIDENT August 18, 2024 13:00
[2024-08-18 14:01] LABS: Triglycerides 89 mg/dL (< 150)
[2024-08-18 14:02] LABS: LDL Cholesterol 74 mg/dL (< 100)
[2024-08-18 14:03] LABS: Cholesterol 167 mg/dL (< 200)
[2024-08-18 14:05] LABS: HDL Cholesterol 75 mg/dL (40-59)
[2024-08-18] MEDS: ALPRAZolam 0.5 MG TAB PO PRN (15:28)
--- NOTE | 2024-08-18 20:23 | DVHPN2 ---
Subjective 44-year-old female with a history of GERD, hypertension, kidney stones, hyperlipidemia came with a chief complaint of chest pain and right flank pain Changes from previous H/P or p: Changes Eyes: No Pain, No Vision change, No Conjunctivae inflammation, No Eyelid inflammation, No Other, No Redness ENT: No Ear pain, No Ear discharge, No Nose pain, No Nose discharge, No Nose congestion, No Mouth pain, No Mouth swelling, No Throat pain, No Throat swelling, No Other Cardiovascular: Chest Pain; No Palpitations, No Orthopnea, No Paroxysmal Noc. Dyspnea, No Edema, No Lt Headedness, No Other Respiratory: No Cough, No Dry, No Shortness of breath, No SOB with excertion, No Wheezing, No Hemoptysis, No Pleuritic Pain, No Sputum, No Other Gastrointestinal: No Nausea, No Vomiting, No Abdominal Pain, No Diarrhea, No Constipation, No Melena, No Hematochezia, No Other Genitourinary: No Dysuria, No Frequency, No Incontinence, No Hematuria, No Retention, No Other Musculoskeletal: No other, No neck pain, No shoulder pain, No arm pain, No back pain, No hand pain, No leg pain, No foot pain Skin: No Rash, No Lesions, No Jaundice, No Bruising, No Other Objective Vitals Vital Signs Date Time Temp Pulse Resp B/P (MAP) Pulse Ox O2 Delivery O2 Flow Rate FiO2 08/18/24 17:00 97.3 98 18 133/91 (105) 99 97.3 08/18/24 07:30 Room Air* 0 21 Intake/Output Intake and Output 08/18/24 07:00 # Voids 10 # Bowel Movements 1 General Appearance: Alert, Oriented X3, Cooperative, No acute distress Lungs: Clear to auscultation, Normal air movement Cardiovascular: Regular rate, Normal S1, Normal S2 Abdomen: Normal bowel sounds, Soft, No tenderness Extremities: No edema Medications Current Medications Medications Dose Ordered Sig/Giuseppe Route Start Time Stop Time Status Last Admin Dose Admin Acetaminophen 325 mg Q4HP PRN PO 08/17/24 15:30 08/18/24 02:28 325 MG Ondansetron HCl 4 mg Q4HP PRN IV 08/17/24 15:30 Docusate Sodium 100 mg BIDPRN PRN PO 08/17/24 15:30 Tramadol HCl 50 mg Q6HP PRN PO 08/17/24 15:30 Nitroglycerin 0.4 mg Q5MINP PRN SL 08/17/24 15:30 Morphine Sulfate 2 mg Q30M PRN IV 08/17/24 15:30 Pantoprazole Sodium 40 mg DAILY@0600 PO 08/18/24 06:00 08/18/24 05:21 40 MG Hydrochlorothiazide 25 mg DAILY PO 08/18/24 10:00 08/18/24 09:25 25 MG Atorvastatin Calcium 20 mg DAILY PO 08/18/24 10:00 08/18/24 09:26 20 MG Alprazolam 0.25 mg Q8HPRN PRN PO 08/18/24 12:30 08/18/24 15:28 0.25 MG Laboratory Results Laboratory Tests 08/18/24 05:24 Chemistry Test 08/18/24 05:24 Albumin 4.5 g/dL (3.2-4.8) Calcium Level 9.6 mg/dL (8.7-10.4) Total Protein 7.2 g/dL (5.7-8.2) Lipid panel Test 08/18/24 05:24 Cholesterol Level 167 mg/dL (< 200) HDL Cholesterol 75 mg/dL (40-59) H Triglycerides Level 89 mg/dL (< 150) LFT Test 08/18/24 05:24 Alanine Aminotransferase (ALT) 22 U/L (7-40) Alkaline Phosphatase 57 U/L (46-116) Aspartate Amino Transferase (AST) 21 U/L (13-40) Total Bilirubin 0.4 mg/dL (0.2-1.0) HgA1c, TSH Test 08/18/24 05:24 Hemoglobin A1c 5.6 % A1C (<5.7) Thyroid Stimulating Hormone (TSH) 2.89 uIU/mL (0.55-4.78) Urinalysis Test 08/18/24 12:06 Urine Color Colorless (Yellow) Urine Clarity Clear (Clear) Urine pH 7.0 (5.0-9.0) Urine Specific [place] 1.012 (1.001-1.035) Urine Protein Negative (Negative) Urine Ketones Negative (Negative) Urine Blood Negative /uL (Negative) Urine Nitrite Negative (Negative) Urine Bilirubin Negative (Negative) Urine Urobilinogen Normal mg/dL (Negative) Urine Leukocyte Esterase Negative /uL (Negative) Urine RBC 1 /hpf (0 - 4) Urine Microscopic WBC < 1 /HPF (0-5) Urine Squamous Epithelial Cells Few /hpf (<5) Urine Bacteria None seen /hpf (None Seen) Urine Glucose Normal mg/dL (Normal) Assessment/Plan Assessment/Plan Chest pain Right flank pain rule out UTI GERD Mixed hyperlipidemia Hypertension History of kidney stones Plan Get an echocardiogram Get a UA and culture Cardiac consult Monitor the patient closely The rest of the management will depend on the hospital course Full code Plan discussed with: Patient My Orders Orders - ANNA KEARNEY MD Procedure Category Date Status Time * Cardiology Consult CONS 08/18/24 Transmitted 10:17 Urine Bacterial SHANITA 08/18/24 In Process Culture 12:04 Alprazolam Tablet PHA 08/18/24 In Process (Xanax Tablet) 12:30 Date of Service: August 18, 2024 Billing Provider: ANNA KEARNEY MD Common Visit Codes: [id number] INP/OBS CARE(HIGH) ANNA KEARNEY MD August 18, 2024 20:23
--- NOTE | 2024-08-18 22:41 | DVHSR ---
APPROVED REPORT EXAM: Two-dimensional and M-mode echocardiogram with Doppler and color Doppler. Blood Pressure: 104/64 mmHg INDICATION Chest Pain RISK FACTORS Height: 5' 6", Weight: 179 DIMENSIONS LVDd4.6 (3.8-5.7cm)LA (2D)3.5 (1.9-4.0cm)Aortic Root3.5 (2.0-3.7cm) LVDs3.0 (2.5-4.0cm)LA (MM) (1.9-4.0cm)Aortic Cusp Exc1.8 (1.5-2.0cm) EF (%) 65.0 (55-70%)Rt. Atrium3.7 (1.9-4.0cm)Asc. Aorta cm IVSd1.0 (0.7-1.1cm)RV (D) (1.8-2.4cm) PWd0.8 (0.7-1.1cm) Mitral Valve MitralMitral Stenosis E wave0.50m/sMV Mean GR.mmHg A wave0.50m/sMV Peak GR.mmHg E/A ratio1.02D MVAcm2 Aortic Valve Aortic ValveAortic Stenosis V10.50m/Oni Mean GR.2mmHg V21.10m/Oni Peak GR.6mmHg LVOT Diameter2.1 (1.8-2.4cm)Doppler AVA1.57cm2 Pulmonic Valve V20.60m/s Tricuspid Valve TR Velocity2.30m/s [id number] Conclusion Technically good study. Sinus rhythm. Aortic root enlargement. Valves are normal. EF of 60% with normal RV function. Mild TR. No pericardial effusion masses or vegetations.
[2024-08-19 01:00] VITALS: BP 109/70; PULSE 79; RESP 17; TEMP 98.1; O2SAT 99
[2024-08-19 05:00] VITALS: BP 121/73; PULSE 70; RESP 17; TEMP 98.1; O2SAT 99
[2024-08-19 08:00] VITALS: PULSE 79
[2024-08-19 09:37] VITALS: BP 125/94; PULSE 89; RESP 18; O2SAT 98
[2024-08-19 13:00] VITALS: BP 133/88; PULSE 74; RESP 18; TEMP 97.8; O2SAT 98
--- NOTE | 2024-08-19 14:43 | DVHDS2 ---
Discharge Summary Date of Admission August 17, 2024 at 15:27 Date of Discharge: August 19, 2024 Labs/Diagnostic Data: Laboratory Results Test 08/18/24 12:06 08/18/24 05:24 08/17/24 11:58 Urine Color Colorless (Yellow) Urine Clarity Clear (Clear) Urine pH 7.0 (5.0-9.0) Urine Specific [place] 1.012 (1.001-1.035) Urine Protein Negative (Negative) Urine Ketones Negative (Negative) Urine Blood Negative /uL (Negative) Urine Nitrite Negative (Negative) Urine Bilirubin Negative (Negative) Urine Urobilinogen Normal mg/dL (Negative) Urine Leukocyte Esterase Negative /uL (Negative) Urine RBC 1 /hpf (0 - 4) Urine Microscopic WBC < 1 /HPF (0-5) Urine Squamous Epithelial Cells Few /hpf (<5) Urine Bacteria None seen /hpf (None Seen) Urine Glucose Normal mg/dL (Normal) Urine Opiates Screen Neg (NEGATIVE) Urine Fentanyl Screen Neg (NEGATIVE) Urine Barbiturates Screen Neg (NEGATIVE) Urine Phencyclidine Screen Neg (NEGATIVE) Urine Amphetamines Screen Neg (NEGATIVE) Urine Benzodiazepines Screen Neg (NEGATIVE) Urine Cocaine Screen Neg (NEGATIVE) Urine Cannabinoids Screen Pos (NEGATIVE) White Blood Count 4.5 10^3/uL (4.4-10.8) Red Blood Count 4.19 10^6/uL (4.0-5.20) Hemoglobin 10.1 g/dL (12.2-16.2) Hematocrit 31.3 % (36.0-46.0) Mean Corpuscular Volume 74.7 fL (80.0-100.0) Mean Corpuscular Hemoglobin 24.0 pg (28.0-32.0) Mean Corpuscular Hemoglobin Concent 32.1 g/dL (32.0-36.0) Red Cell Distribution Width 18.3 % (11.8-14.3) Platelet Count 231 10^3/uL (140-450) Mean Platelet Volume 7.3 fL (6.9-10.8) Neutrophils (%) (Auto) 53.3 % (37.0-80.0) Lymphocytes (%) (Auto) 35.2 % (10.0-50.0) Monocytes (%) (Auto) 7.3 % (0.0-12.0) Eosinophils (%) (Auto) 3.4 % (0.0-7.0) Basophils (%) (Auto) 0.8 % (0.0-2.0) Neutrophils # (Auto) 2.4 10 ^3/uL (1.6-8.6) Lymphocytes # (Auto) 1.6 10 ^3/uL (0.4-5.4) Monocytes # (Auto) 0.3 10 ^3/uL (0-1.3) Eosinophils # (Auto) 0.2 10 ^3/uL (0-0.8) Basophils # (Auto) 0 10 ^3/uL (0-0.2) Nucleated Red Blood Cells 0.1 % Sodium Level 136 mmol/L (136-145) Potassium Level 3.5 mmol/L (3.5-5.1) Chloride Level 104 mmol/L (98-107) Carbon Dioxide Level 22 mmol/L (20-31) Anion Gap 10 (5-15) Blood Urea Nitrogen 11 mg/dL (9-23) Creatinine 0.93 mg/dL (0.550-1.02) Glomerular Filtration Rate Calc 77 mL/min (>90) BUN/Creatinine Ratio 11.8 (10.0-20.0) Serum Glucose 82 mg/dL (74-106) Hemoglobin A1c 5.6 % A1C (<5.7) Calcium Level 9.6 mg/dL (8.7-10.4) Total Bilirubin 0.4 mg/dL (0.2-1.0) Aspartate Amino Transferase (AST) 21 U/L (13-40) Alanine Aminotransferase (ALT) 22 U/L (7-40) Alkaline Phosphatase 57 U/L (46-116) Total Protein 7.2 g/dL (5.7-8.2) Albumin 4.5 g/dL (3.2-4.8) Triglycerides Level 89 mg/dL (< 150) Cholesterol Level 167 mg/dL (< 200) LDL Cholesterol 74 mg/dL (< 100) HDL Cholesterol 75 mg/dL (40-59) Thyroid Stimulating Hormone (TSH) 2.89 uIU/mL (0.55-4.78) Troponin I High Sensitivity < 3 ng/L (</=34) Other Laboratory Tests 08/18/24 05:24 Brief Hx & Hospital Course: Final diagnoses: Chest pain, due to musculoskeletal pain Right flank pain No UTI GERD Mixed hyperlipidemia Hypertension History of kidney stones 44-year-old female was admitted for chest pain and right flank pain The troponins were negative EKG was normal The echocardiogram was normal with an ejection fraction of 60% and mild TR UA was negative for UTI She is asymptomatic now No chest pain No right flank pain Vital signs are stable Patient is stable for discharge Follow up with the primary care physician as soon as possible Resume the home medications Condition at Discharge: Stable Final Diagnosis/Problems List Chest pain most likely musculoskeletal NH ruled out Discharge Disposition: Home SNF Discharge Will this Physician continue t: No Discharge Instruct/Medications Diet: Cardiac 2g Na,low cholest Activity: No Restrictions, As Tolerated Follow Up/Referral: PCP as soon as possible Medications: Same home medications Discharge Statement: "Patient was advised to return to the ER or call 911 if any headaches, dizziness, shortness of breath, chest pain, abdominal pain, bleeding, fevers, or worsening of medical condition. Patient was counseled about treatment plan, medications, possible side effects, patientverbalized understanding. All questions were answered to the best of my ability. This discharge took greater then 30 minutes in planning, reviewing documentation, counseling the patient, and discussing with other team members." ASSESSMENT ASSESSMENT Assessment Chest pain most likely musculoskeletal NH ruled out Date of Service: August 19, 2024 Billing Provider: ANNA KEARNEY MD Common Visit Codes: [id number]/[id number] DISCH DAY >30min ANNA KEARNEY MD August 19, 2024 14:43
[2024-08-19 15:20] VITALS: BP 125/94
== END 2024-08-19 16:55 | disposition home or self-care (01) | DRG 203 ==
LOC: EDBD 10:57 → ER 10:57 → OVERFLOW 15:27 → TELE-EAST 15:32
PROVIDERS: ADMIT Registered Nurse General Practice; ATTEND Registered Nurse General Practice
DX: R07.89 Other chest pain (principal); E78.2 Mixed hyperlipidemia; K21.9 Gastro-esophageal reflux disease without esophagitis; I10 Essential (primary) hypertension; Z88.5 Allergy status to narcotic agent; Z79.899 Other long term (current) drug therapy; Z87.442 Personal history of urinary calculi; Z72.0 Tobacco use; Z87.59 Personal history of other complications of pregnancy, childbirth and the puerperium
CPT/HCPCS: 36415; 71045; 80048; 80053; 80061; 80307; 81001; 83036; 84443; 84484; 85025; 87086; 93005; 93306; 99291; G0378

== ENCOUNTER 2024-10-25 09:08 | Inpatient (IN) | payer MEDICAID ==
[~2024-10-25] VITALS: Ht 167.6 cm; Wt 82.4 kg
[~2024-10-25 09:08] MED LIST changes: +ATOR20TA50 PO
--- NOTE | 2024-10-25 09:50 | ED.PDOC ---
History of Present Illness HPI Comments 44-year-old female BIBA with prior medical history of hypertension, high lipids, anxiety in the chief complaint of generalized weakness. EMS report that the patient has had generalized weakness, shortness a breath, was chest left anterior chest pain all during the past two days. Patient notes that the chest pain is squeeze like on palpation. Patient States on having bilateral leg swelling for the past year, which subsided on their own, the leg swelling are on and off. 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 Denies chills, fever, N/V/D. No other associated symptoms, modifiers, recent injuries or sick contacts present at this time. Chief Complaint: General Weakness Time Seen by MD: 09:20 Primary Care Provider: [facility] Dalton Notes: Nurses Notes, Medications, Allergies Allergies: Coded Allergies: Codeine (Verified Allergy, Severe, 11/11/20) Home Meds Active Scripts Pantoprazole Sodium Sesquihydr (Protonix) 40 Mg Tab, 40 MG PO DAILY PRN for 7 Days, #7 TAB Prov:RAZ BAILON MD 08/10/21 Prednisone (Prednisone) 10 Mg Roshan, 10 MG PO DAILY for 7 Days, #7 PACK Prov:RAZ BAILON MD 08/10/21 Ondansetron (Zofran) 4 Mg Tab, 4 MG PO Q8HP PRN for 5 Days, #10 MG Prov:ALISA DIAZ MD 05/01/21 Methylprednisolone (Medrol Dosepak) 4 Mg Roshan, 4 MG PO UD, #21 TAB UAD Prov:ALISA DIAZ MD 05/01/21 Reported Medications Atorvastatin Calcium (ATORVASTATIN CALCIUM) 20 Mg Tab, 1 TAB PO DAILY 08/17/24 Hydrochlorothiazide (Hydrochlorothiazide) 25 Mg Tab, 25 MG PO DAILY for 30 Days, MG 11/29/20 Information Source: Patient, Emergency Med Personnel Mode of Arrival: EMS Severity: Moderate Timing: Days Duration: Since onset, Days Prehospital treatment: None Past Medical History PAST MEDICAL HISTORY: Anxiety, High Lipids, HTN Surgical History (Other): Right ovary surgery MARBLEIZER History: Ectopic Family History Family History: Reviewed,noncontributory to illness, Unknown Social History Smoker: Unknown Alcohol: Unknown Drugs: Unknown Lives In: Home Constitutional: reports: weakness (Generalized); denies: chills, diaphoresis, fatigue, fever, malaise, sweats, others EENTM: denies: blurred vision, double vision, ear bleeding, ear discharge, ear drainage, ear pain, ear ringing, eye pain, eye redness, hearing loss, mouth pain, mouth swelling, nasal discharge, nose bleeding, nose congestion, nose pain, photophobia, tearing, throat pain, throat swelling, voice changes, others Respiratory: reports: shortness of breath; denies: cough, hemoptysis, orthopnea, SOB at rest, SOB with excertion, stridor, wheezing, others Cardiovascular: reports: chest pain (Left anterior squeezing sensation on palpation); denies: dizzy spells, diaphoresis, Dyspnea on exertion, edema, irregular heart beat, left arm pain, lightheadedness, palpitations, PND, syncope, others Gastrointestinal: denies: abdomen distended, abdominal pain, blood streaked bowels, constipated, diarrhea, dysphagia, difficulty swallowing, hematemesis, melena, nausea, poor appetite, poor fluid intake, rectal bleeding, rectal pain, vomiting, others Genitourinary: denies: abnormal vagina bleeding, burning, dyspareunia, dysuria, flank pain, frequency, hematuria, incontinence, pain, , vagina discharge, urgency, others Neurological: denies: dizziness, fainting, headache, left sided numbness, left sided weakness, numbness, paresthesia, pre-existing deficit, right sided numbness, right sided weakness, seizure, speech problems, tingling, tremors, weakness, others Musculoskeletal: denies: back pain, gout, joint pain, joint swelling, muscle pain, muscle stiffness, neck pain, others Integumetry: denies: bruises, change in color, change in hair/nails, dryness, laceration, lesions, lumps, rash, wounds, others Allergic/Immunocompromised: denies: Difficulty Healing, Frequent Infections, Hives, Itching, others Hematologic/Lymphatic: denies: anemia, blood clots, easy bleeding, easy bruising, swollen glands, others Endocrine: denies: excessive hunger, excessive sweating, excessive thirst, excessive urination, flushing, intolerance to cold, intolerance to heat, unexplained weight gain, unexplained weight loss, others Psychiatric: denies: anxiety, bipolar disorder, depression, hopeless, panic disorder, schizophrenia, sleepless, suicidal, others All Other Systems: Reviewed and Negative Physical Exam General Appearance: Moderate Distress, Normal HEENT: Normal ENT Inspection, Pharynx Normal, TMs Normal Neck: Full Range of Motion, Non-Tender, Normal, Normal Inspection Respiratory: Chest Non-Tender, Lungs Clear, No Accessory Muscle Use, No Respiratory Distress, Normal Breath Sounds Cardiovascular: No Edema, No JVD, No Murmur, No Gallop, Normal Peripheral Pulses, Regular Rate/Rhythm Breast Exam: Deferred Gastrointestinal: No Organomegaly, Non Tender, No Pulsatile Mass, Normal Bowel Sounds, Soft Genitalia: Deferred Pelvic: Deferred Rectal: Deferred Extremities: No calf tenderness, Normal capillary refill, Normal inspection, Normal range of motion, Non-tender, No pedal edema Musculoskeletal : Apperance: Normal Neurologic: Alert, curtain drier II-XII nml as Tested, No Motor Deficits, Normal Affect, Normal Mood, No Sensory Deficits Cerebellar Function: Normal Reflexes: Normal Skin: Dry, Normal Color, Warm Peripheral Pulses: 3+ Radial (R), 3+ Radial (L) Lymphatic: No Adenopathy Was a procedure done? Was a procedure done?: No EKG EKG : Pulse Rate (adult): 72 [place]: Normal Cardiac Rhythm: NSR Block: None Hypertrophy: None ST: Normal Differential Dx Considerations may include: Anemia Electrolyte imbalance X-Ray, Labs, Meds, VS Vital Signs Date Time Temp Pulse Resp B/P (MAP) Pulse Ox O2 Delivery O2 Flow Rate FiO2 10/25/24 13:00 64 12 144/81 (102) 99 10/25/24 12:00 65 10/25/24 11:00 72 17 134/94 (107) 99 10/25/24 10:00 66 14 100 Room Air* 0 21 10/25/24 09:50 72 10/25/24 09:44 98.1 73 14 146/96 (113) 100 98.1 10/25/24 09:38 97.6 82 20 155/93 (113) 99 97.6 10/25/24 09:14 72 Lab Test 10/25/24 11:04 10/25/24 10:08 Range/Units Troponin I High Sensitivity < 3 L < 3 L </=34 ng/L White Blood Count 3.7 L 4.4-10.8 10^3/uL Red Blood Count 4.65 4.0-5.20 10^6/uL Hemoglobin 10.7 L 12.2-16.2 g/dL Hematocrit 33.4 L 36.0-46.0 % Mean Corpuscular Volume 71.9 L 80.0-100.0 fL Mean Corpuscular Hemoglobin 23.1 L 28.0-32.0 pg Mean Corpuscular Hemoglobin Concent 32.1 32.0-36.0 g/dL Red Cell Distribution Width 19.0 H 11.8-14.3 % Platelet Count 237 140-450 10^3/uL Mean Platelet Volume 7.3 6.9-10.8 fL Neutrophils (%) (Auto) 58.9 37.0-80.0 % Lymphocytes (%) (Auto) 28.5 10.0-50.0 % Monocytes (%) (Auto) 8.5 0.0-12.0 % Eosinophils (%) (Auto) 2.9 0.0-7.0 % Basophils (%) (Auto) 1.2 0.0-2.0 % Neutrophils # (Auto) 2.2 1.6-8.6 10 ^3/uL Lymphocytes # (Auto) 1.1 0.4-5.4 10 ^3/uL Monocytes # (Auto) 0.3 0-1.3 10 ^3/uL Eosinophils # (Auto) 0.1 0-0.8 10 ^3/uL Basophils # (Auto) 0 0-0.2 10 ^3/uL Nucleated Red Blood Cells 0.1 % Sodium Level 139 136-145 mmol/L Potassium Level 3.5 3.5-5.1 mmol/L Chloride Level 101 98-107 mmol/L Carbon Dioxide Level 29 20-31 mmol/L Anion Gap 9 5-15 Blood Urea Nitrogen 11 9-23 mg/dL Creatinine 1.07 H 0.550-1.02 mg/dL Glomerular Filtration Rate Calc 65 >90 mL/min BUN/Creatinine Ratio 10.3 10.0-20.0 Serum Glucose 99 74-106 mg/dL Calcium Level 10.6 H 8.7-10.4 mg/dL Current Medications Medications (Trade) Dose Ordered Sig/Giuseppe Route Start Time Stop Time Status Last Admin Sodium Chloride 1,000 ml @ 1,000 mls/hr Q1H ONCE IV 10/25/24 10:00 7/23/25 10:59 DC 10/25/24 10:17 Lorazepam (Ativan Inj) 1 mg ONCE ONCE IV 10/25/24 10:00 10/25/24 10:01 DC 10/25/24 10:17 Patient alert. Possible anxiety. Vitals stable. Answering questions. EKG reviewed does not show any acute changes. Blood pressure slightly elevated. Was given clonidine. Was given Ativan. No leg swelling. No shortness a breath. Reviewed her previous visit. Explained to the patient. She continues to have chest pain. Was given nitro. Echocardiogram. Cardiology consultation. Time of 1ST Reevaluation: 09:50 Reevaluation 1ST: Unchanged Patient Education/Counseling: Diagnosis, Treatment, Prognosis Family Education/Counseling: No Family Present SEPSIS Sepsis Screen Physician Orders Electrocardigram (10/25/24 09:16) Urinalysis (10/25/24 09:47) Vital Signs Date Time Temp Pulse Resp B/P (MAP) Pulse Ox O2 Delivery O2 Flow Rate FiO2 10/25/24 13:00 64 12 144/81 (102) 99 10/25/24 12:00 65 10/25/24 11:00 72 17 134/94 (107) 99 10/25/24 10:00 66 14 100 Room Air* 0 21 10/25/24 09:50 72 10/25/24 09:44 98.1 73 14 146/96 (113) 100 98.1 10/25/24 09:38 97.6 82 20 155/93 (113) 99 97.6 10/25/24 09:14 72 Laboratory Tests Test 10/25/24 10:08 White Blood Count 3.7 10^3/uL (4.4-10.8) L Medications Medications Dose Ordered Sig/Giuseppe Route Start Time Stop Time Status Last Admin Dose Admin Lorazepam 1 mg ONCE ONCE IV 10/25/24 10:00 10/25/24 10:01 DC 10/25/24 10:17 Sodium Chloride 1,000 ml @ 1,000 mls/hr Q1H ONCE IV 10/25/24 10:00 10/25/24 10:59 DC 10/25/24 10:17 Departure 1 Departure Time of Disposition: 09:55 Impression: Primary Impression: Chest pain of unknown etiology Additional Impression: Anxiety Disposition: 09 ADMITTED INPATIENT Admit to: Med Surg Condition: Guarded Critical Care Note Critical Care Time?: No Stability Stability form required: No Heart Score Heart Score: Heart Score Response (Comments) Value History Slightly Suspicious 0 EKG Normal 0 Age 45-64 1 Risk Factors No known risk factors 0 Troponin Normal limit 0 Total 1 I personally scribed for RAZ BAILON MD ([email or web address]) on 10/25/24 at 09:50. Electronically submitted by Akbar Ojeda ([email or web address]). I personally scribed for RAZ BAILON MD ([email or web address]) on 10/25/24 at 09:50. Electronically submitted by Akbar Ojeda ([email or web address]). RAZ BAILON MD Oct 25, 2024 09:50
[2024-10-25 10:00] VITALS: PULSE 66; RESP 14; O2SAT 100
[2024-10-25] MEDS: SODIUM CHLORIDE 0.9% 1,000 ML IV ONE (10:17)
[2024-10-25] MEDS: LORazepam 2MG/ML-1ML VIAL IV ONE (10:17)
[2024-10-25 10:26] LABS: Hematocrit 33.4 % (36.0-46.0); Hemoglobin 10.7 g/dL (12.2-16.2); Mean Corpuscular Hemoglobin 23.1 pg (28.0-32.0); Mean Corpuscular Volume 71.9 fL (80.0-100.0); Nucleated Red Blood Cells % 0.1 %
[2024-10-25 10:41] LABS: Chloride 101 mmol/L (98-107); Potassium 3.5 mmol/L (3.5-5.1); Sodium 139 mmol/L (136-145)
[2024-10-25 10:42] LABS: Anion Gap 9 (5-15); Carbon Dioxide 29 mmol/L (20-31)
[2024-10-25 10:47] LABS: BUN/Creatinine Ratio 10.3 (10.0-20.0); Blood Urea Nitrogen 11 mg/dL (9-23); Glucose 99 mg/dL (74-106)
[2024-10-25 10:49] LABS: Calcium 10.6 mg/dL (8.7-10.4)
[2024-10-25] MEDS: NITROGLYCERIN 0.4 MG SL TAB SL ONE (15:30)
[2024-10-25] MEDS ORDERED: HYDROcodone-ACET 5/325MG TAB PO PRN (18:15)
[2024-10-25] MEDS ORDERED: MORPHINE SULFATE INJ 2 MG/ml SYRG IV PRN (18:15)
[2024-10-25] MEDS ORDERED: ACETAMINOPHEN 325 MG TAB PO PRN (18:15)
[2024-10-25] MEDS ORDERED: ONDANSETRON HCL 4 MG/2 ML VIAL IV PRN (18:15)
[2024-10-25] MEDS ORDERED: NITROGLYCERIN 0.4 MG SL TAB SL PRN (18:15)
--- NOTE | 2024-10-25 18:22 | DVHHP2 ---
Admitting Diagnosis: Chest pain History of Present Illness 44-year-old female [place] with prior medical history of hypertension, high lipids, anxiety in the chief complaint of generalized weakness. EMS report that the patient has had generalized weakness, shortness a breath, was chest left anterior chest pain all during the past two days. Patient notes that the chest pain is squeeze like on palpation. Patient States on having bilateral leg swelling for the past year, which subsided on their own, the leg swelling are on and off. 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 Jones. Denies chills, fever, N/V/D. No other associated symptoms, modifiers, recent injuries or sick contacts present at this time. 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 Family History Family History: Reviewed,noncontributory to illness, Unknown Social History Smoker: Unknown Alcohol: Unknown Drugs: Unknown Lives In: Home Patient Family History: Cardiovascular disease G8 FATHER Diabetes mellitus G8 MOTHER Allergies: Coded Allergies: Codeine (Verified Allergy, Severe, 11/11/20) Home Meds Active Scripts Pantoprazole Sodium Sesquihydr (Protonix) 40 Mg Tab, 40 MG PO DAILY PRN for 7 Days, #7 TAB Prov:RAZ BAILON MD 08/10/21 Prednisone (Prednisone) 10 Mg Roshan, 10 MG PO DAILY for 7 Days, #7 PACK Prov:RAZ BAILON MD 08/10/21 Ondansetron (Zofran) 4 Mg Tab, 4 MG PO Q8HP PRN for 5 Days, #10 MG Prov:ALISA DIAZ MD 05/01/21 Methylprednisolone (Medrol Dosepak) 4 Mg Roshan, 4 MG PO UD, #21 TAB UAD Prov:ALISA DIAZ MD 05/01/21 Reported Medications Atorvastatin Calcium (ATORVASTATIN CALCIUM) 20 Mg Tab, 1 TAB PO DAILY 08/17/24 Hydrochlorothiazide (Hydrochlorothiazide) 25 Mg Tab, 25 MG PO DAILY for 30 Days, MG 11/29/20 Vital Signs Vital Signs Date Time Temp Pulse Resp B/P (MAP) Pulse Ox O2 Delivery O2 Flow Rate FiO2 10/25/24 16:30 134/91 10/25/24 13:00 64 12 99 10/25/24 10:00 Room Air* 0 21 10/25/24 09:44 98.1 98.1 Physical Exam Generally-44 years old woman, well nourished well developed. No apparent distress HEENT-atraumatic normocephalic Heart-regular rate and rhythm Lungs clear to auscultate bilaterally Abdomen soft nontender nondistended Musculoskeletal-no edema cyanosis Neuro-AO x3, no focal deficits SEPSIS Sepsis Screen Date sepsis recognized/suspect: Oct 25, 2024 Time Sepsis recognized/suspect: 919 Recent Procedure: No On Antibiotic Therapy: No Respiratory Rate >20: No Heart Rate >90: No Temp<36 C (96.8 F) or >38.3 C: No SBP <90 or MAP <65 mmHG: No New Acute Mental Status Change: No Is the patient on CPAP, BIPAP,: No Physician Orders Electrocardigram (10/25/24 09:16) Urinalysis (10/25/24 09:47) Echo 2d Mode Cardiac Dop (10/25/24 18:13) Admit (10/25/24 18:13) Code Status (10/25/24 18:13) Vital Signs .PER UNIT PROTOCOL (10/25/24 18:13) Review Orders With Adm.Md (10/25/24 18:13) Encourage Activity As Tolerate (10/25/24 18:13) Regular Diet (10/25/24 Dinner) Sodium Chloride Lock (Saline Lock Ns) (10/25/24 22:00) Docusate Sodium Capsule (Colace Capsule) (10/25/24 18:15) Acetaminophen Tablet (Tylenol Tablet) (10/25/24 18:15) Notify Md Of Changes From Base (10/25/24 18:13) Advance Directive (10/25/24 18:13) Patient Condition (10/25/24 18:13) Allergies (10/25/24 18:13) Hydrocodone-Acet 5/325mg Tab ([place] 5/32 (10/25/24 18:15) Hydromorphone Injection (Dilaudid Inject (10/25/24 18:15) Ondansetron Hcl (Zofran) (10/25/24 18:15) Lovenox 40mg (10/26/24 10:00) Nitroglycerin Sublingual (Ntrostat Subli (10/25/24 18:15) Morphine Sulfate Injection (10/25/24 18:15) Stat Ekg For Chest Pain (10/25/24 18:13) Notify Of Changes From Base (10/25/24 18:13) Internet Sales Associate For 24 Hours (10/25/24 18:13) Emergency Dysrhythmia Protocol (10/25/24 18:13) Rhythm Strips Once Every Shift (10/25/24 18:13) Oxygen By Nasal Cannula (10/25/24 18:13) Comprehensive Metabolic Panel (10/26/24 05:00) Comprehensive Metabolic Panel (10/27/24 05:00) Comprehensive Metabolic Panel (10/28/24 05:00) Comprehensive Metabolic Panel (10/29/24 05:00) Comprehensive Metabolic Panel (10/30/24 05:00) Complete Blood Count (10/26/24 05:00) Complete Blood Count (10/27/24 05:00) Complete Blood Count (10/28/24 05:00) Complete Blood Count (10/29/24 05:00) Complete Blood Count (10/30/24 05:00) Atorvastatin (Lipitor) (10/26/24 10:00) Hydrochlorothiazide Tablet (Hydrochlorot (10/26/24 10:00) Pantoprazole Tablet (Protonix Tablet) (10/26/24 10:00) Vital Signs Date Time Temp Pulse Resp B/P (MAP) Pulse Ox O2 Delivery O2 Flow Rate FiO2 10/25/24 16:30 134/91 10/25/24 15:30 134/91 10/25/24 13:00 64 12 144/81 (102) 99 10/25/24 12:00 65 10/25/24 11:00 72 17 134/94 (107) 99 10/25/24 10:00 66 14 100 Room Air* 0 21 10/25/24 09:50 72 10/25/24 09:44 98.1 73 14 146/96 (113) 100 98.1 10/25/24 09:38 97.6 82 20 155/93 (113) 99 97.6 10/25/24 09:14 72 Laboratory Tests Test 10/25/24 10:08 White Blood Count 3.7 10^3/uL (4.4-10.8) L Medications Medications Dose Ordered Sig/Giuseppe Route Start Time Stop Time Status Last Admin Dose Admin Aspirin 325 mg ONCE ONCE PO 10/25/24 15:30 10/25/24 15:31 DC 10/25/24 15:30 Lorazepam 1 mg ONCE ONCE IV 10/25/24 10:00 10/25/24 10:01 DC 10/25/24 10:17 Nitroglycerin 0.4 mg ONCE ONCE SL 10/25/24 15:30 10/25/24 15:31 DC 10/25/24 15:30 Sodium Chloride 1,000 ml @ 1,000 mls/hr Q1H ONCE IV 10/25/24 10:00 10/25/24 10:59 DC 10/25/24 10:17 Results Labs Test 10/25/24 11:04 10/25/24 10:08 Range/Units Troponin I High Sensitivity < 3 L </=34 ng/L White Blood Count 3.7 L 4.4-10.8 10^3/uL Red Blood Count 4.65 4.0-5.20 10^6/uL Hemoglobin 10.7 L 12.2-16.2 g/dL Hematocrit 33.4 L 36.0-46.0 % Mean Corpuscular Volume 71.9 L 80.0-100.0 fL Mean Corpuscular Hemoglobin 23.1 L 28.0-32.0 pg Mean Corpuscular Hemoglobin Concent 32.1 32.0-36.0 g/dL Red Cell Distribution Width 19.0 H 11.8-14.3 % Platelet Count 237 140-450 10^3/uL Mean Platelet Volume 7.3 6.9-10.8 fL Neutrophils (%) (Auto) 58.9 37.0-80.0 % Lymphocytes (%) (Auto) 28.5 10.0-50.0 % Monocytes (%) (Auto) 8.5 0.0-12.0 % Eosinophils (%) (Auto) 2.9 0.0-7.0 % Basophils (%) (Auto) 1.2 0.0-2.0 % Neutrophils # (Auto) 2.2 1.6-8.6 10 ^3/uL Lymphocytes # (Auto) 1.1 0.4-5.4 10 ^3/uL Monocytes # (Auto) 0.3 0-1.3 10 ^3/uL Eosinophils # (Auto) 0.1 0-0.8 10 ^3/uL Basophils # (Auto) 0 0-0.2 10 ^3/uL Nucleated Red Blood Cells 0.1 % Sodium Level 139 136-145 mmol/L Potassium Level 3.5 3.5-5.1 mmol/L Chloride Level 101 98-107 mmol/L Carbon Dioxide Level 29 20-31 mmol/L Anion Gap 9 5-15 Blood Urea Nitrogen 11 9-23 mg/dL Creatinine 1.07 H 0.550-1.02 mg/dL Glomerular Filtration Rate Calc 65 >90 mL/min BUN/Creatinine Ratio 10.3 10.0-20.0 Serum Glucose 99 74-106 mg/dL Calcium Level 10.6 H 8.7-10.4 mg/dL Primary Diagnosis Anxiety Chest pain rule out ACS Plan Troponin negative x3 Check EKG Check echo of the heart to rule out ACS Cardiac diet Resume home meds Full code Lovenox for DVT prophylaxis PPI for GI prophylaxis Plan discussed with: Patient Problems List: (1) Chest pain Status: Acute (2) Anxiety Status: Acute Date of Service: Oct 25, 2024 Billing Provider: RAFFAELE BURDEN MD Common Visit Codes: [id number] INP/OBS CARE (MOD) RAFFAELE BURDEN MD Oct 25, 2024 18:22
[2024-10-25 19:55] VITALS: BP 128/87; PULSE 69; RESP 17; TEMP 98.2; O2SAT 97
[2024-10-25] MEDS: HYDROmorphone HCL 2 MG/ML VL/or syr IV PRN (20:03)
[2024-10-25 20:23] LABS: Urine Protein, UAD Negative (Negative)
[2024-10-25] MEDS ORDERED: ERGO1CAP12 PO (20:36)
[2024-10-25] MEDS ORDERED: HYDR25TA5 PO (20:36)
[2024-10-25] MEDS ORDERED: OMEP-434 PO (20:37)
[2024-10-25 21:00] VITALS: BP 136/95; PULSE 62; RESP 17; TEMP 97.9; O2SAT 97
[2024-10-25] MEDS: SODIUM CHLOR 0.9% PF (SALINE LOCK) 10ML VIAL/SYR IV SCH (21:08)
[2024-10-26] VITALS (7 sets, daily range): BP systolic 109–140; BP diastolic 85–102; PULSE 68–91; RESP 16–20; TEMP 96.3–98.5; O2SAT 94–99
[2024-10-26 07:31] LABS: Hematocrit 33.4 % (36.0-46.0); Hemoglobin 10.7 g/dL (12.2-16.2); Mean Corpuscular Hemoglobin 23.1 pg (28.0-32.0); Mean Corpuscular Volume 71.7 fL (80.0-100.0); Nucleated Red Blood Cells % 0.1 %
[2024-10-26 07:45] LABS: Alanine Aminotransferase 20 U/L (7-40); Albumin 4.4 g/dL (3.2-4.8); Alkaline Phosphatase 58 U/L (46-116); Anion Gap 8 (5-15); BUN/Creatinine Ratio 9.0 (10.0-20.0); Calcium 10.2 mg/dL (8.7-10.4); Carbon Dioxide 28 mmol/L (20-31); Chloride 104 mmol/L (98-107); Glucose 86 mg/dL (74-106); Sodium 140 mmol/L (136-145); Total Protein 6.7 g/dL (5.7-8.2)
[2024-10-26 07:46] LABS: Bilirubin, Total 0.4 mg/dL (0.2-1.0); Blood Urea Nitrogen 9 mg/dL (9-23); Potassium 3.3 mmol/L (3.5-5.1)
[2024-10-26] MEDS: hydroCHLOROthiazide 25 MG TAB PO SCH (09:07)
[2024-10-26] MEDS: PANTOPRAZOLE 40 MG TAB PO SCH (09:07)
[2024-10-26] MEDS: ENOXAPARIN SOD 40 MG/0.4 ML SYRINGE SC SCH (09:07)
--- NOTE | 2024-10-26 12:29 | ECG ---
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
[2024-10-26] MEDS: ALPRAZolam 0.5 MG TAB PO PRN (13:13)
--- NOTE | 2024-10-26 15:56 | DVHPN2 ---
Reviewed: Care Plan, H&P, Medications, Previous Orders, Radiology Changes from previous H/P or p: No Changes General: Per HPI Objective Vitals Vital Signs Date Time Temp Pulse Resp B/P (MAP) Pulse Ox O2 Delivery O2 Flow Rate FiO2 10/26/24 13:00 98.5 91 20 140/102 (115) 99 98.5 10/26/24 08:00 Room Air* 0 21 Intake/Output Intake and Output 10/26/24 06:59 Intake Total 1800 ml Balance 1800 ml Intake Oral 800 ml IV Total 1000 ml # Voids 4 General Appearance: Alert, Oriented X3, Cooperative Cardiovascular: Regular rate, Normal S1, Normal S2 Neuro: Normal gait, Normal speech Medications Current Medications Medications Dose Ordered Sig/Giuseppe Route Start Time Stop Time Status Last Admin Dose Admin Sodium Chloride 10 ml Q8HR IV 10/25/24 22:00 10/26/24 14:35 10 ML Docusate Sodium 100 mg BIDPRN PRN PO 10/25/24 18:15 Acetaminophen 650 mg Q6HP PRN PO 10/25/24 18:15 Acetaminophen/ Hydrocodone Bitart 1 tab Q4HP PRN PO 10/25/24 18:15 Hydromorphone HCl 0.5 mg Q4HP PRN IV 10/25/24 18:15 10/25/24 20:03 0.5 MG Ondansetron HCl 4 mg Q4HP PRN IV 10/25/24 18:15 Enoxaparin Sodium 40 mg DAILY SC 10/26/24 10:00 10/26/24 09:07 40 MG Nitroglycerin 0.4 mg Q5MINP PRN SL 10/25/24 18:15 Morphine Sulfate 2 mg Q30M PRN IV 10/25/24 18:15 Hold Atorvastatin Calcium 20 mg HS PO 10/26/24 22:00 Hydrochlorothiazide 25 mg DAILY PO 10/26/24 10:00 10/26/24 09:07 25 MG Pantoprazole Sodium 40 mg DAILY PO 10/26/24 10:00 10/26/24 09:07 40 MG Alprazolam 1 mg Q8HPRN PRN PO 10/26/24 13:00 10/26/24 13:13 1 MG Laboratory Results Laboratory Tests 10/26/24 07:10 Chemistry Test 10/26/24 07:10 Albumin 4.4 g/dL (3.2-4.8) Calcium Level 10.2 mg/dL (8.7-10.4) Total Protein 6.7 g/dL (5.7-8.2) LFT Test 10/26/24 07:10 Alanine Aminotransferase (ALT) 20 U/L (7-40) Alkaline Phosphatase 58 U/L (46-116) Aspartate Amino Transferase (AST) 22 U/L (13-40) Total Bilirubin 0.4 mg/dL (0.2-1.0) Urinalysis Test 10/25/24 20:02 Urine Color Light-yellow (Yellow) Urine Clarity Clear (Clear) Urine pH 7.0 (5.0-9.0) Urine Specific [place] 1.010 (1.001-1.035) Urine Protein Negative (Negative) Urine Ketones Negative (Negative) Urine Blood Negative /uL (Negative) Urine Nitrite Negative (Negative) Urine Bilirubin Negative (Negative) Urine Urobilinogen Normal mg/dL (Negative) Urine Leukocyte Esterase Negative /uL (Negative) Urine RBC 1 /hpf (0 - 4) Urine Microscopic WBC 2 /HPF (0-5) Urine Squamous Epithelial Cells Few /hpf (<5) Urine Bacteria Few /hpf (None Seen) H Urine Glucose Normal mg/dL (Normal) Labs and/or images reviewed: Labs reviewed by me, Image(s) reviewed by me Assessment/Plan Assessment/Plan 44-year-old female BIBA with prior medical history of hypertension, high lipids, anxiety in the chief complaint of generalized weakness. EMS report that the patient has had generalized weakness, shortness a breath, was chest left anterior chest pain all during the past two days. Patient notes that the chest pain is squeeze like on palpation. Patient States on having bilateral leg swelling for the past year, which subsided on their own, the leg swelling are on and off. 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 Jones. Denies chills, fever, N/V/D. No other associated symptoms, modifiers, recent injuries or sick contacts present at this time. Anxiety Chest pain rule out ACS HTN HLD Plan discussed with: Patient My Orders Orders - LUCIE VU DO Procedure Category Date Status Time Alprazolam Tablet PHA 10/26/24 In Process (Xanax Tablet) 13:00 Date of Service: Oct 26, 2024 Billing Provider: LUCIE VU DO Common Visit Codes: [id number] INP/OBS CARE(HIGH) LUCIE VU DO Oct 26, 2024 15:56
[2024-10-26] MEDS ORDERED: ALPRAZolam 0.5 MG TAB PO PRN (16:00)
--- NOTE | 2024-10-26 17:42 | DVHINCON2 ---
Date Seen: Oct 26, 2024 Referring Physician MD Catalina Reason for Consultation Chest pain History of Present Illness This is a 44-year-old female patient who presents to emergency room with chief complaint of chest pain for four days. The patient describes the pain as provoked by touch, intermittent, "squeezing" in nature, left-sided and nonradiating. She denies any associated symptoms. No twelve lead electrocardio gram found in patient's hard chart at time of assessment. Bedside RN performed a twelve lead electrocardiogram at time of assessment which revealed normal sinus rhythm without any ST segment changes. Serial troponin levels have been negative. Chest pain is reproducible upon palpation during assessment. Significant past medical history includes hypertension, dyslipidemia, anxiety, and tobacco use. The patient reports that she follows up with retinal surgeon in the outpatient setting. Previous Cardiolite stress test done at this facility in 2020 revealed no ischemia. The patient reports having another stress test done with her primary retinal surgeon within the last two years, which was negative. Past Medical History Past medical history reviewed. No other significant than mentioned above. Past Surgical History Left oophorectomy Family History: Cardiovascular disease G8 FATHER Diabetes mellitus G8 MOTHER FH: stroke Family History Family history reviewed. Social History Patient has a 10 pack-year history, smokes approximately half a pack per day Patient admits to occasional marijuana use Patient admits to occasional alcohol use Allergies: Coded Allergies: Codeine (Verified Allergy, Severe, 11/11/20) Home Meds Active Scripts Pantoprazole Sodium Sesquihydr (Protonix) 40 Mg Tab, 40 MG PO DAILY PRN for 7 Days, #7 TAB Prov:RAZ BAILON MD 08/10/21 Prednisone (Prednisone) 10 Mg Roshan, 10 MG PO DAILY for 7 Days, #7 PACK Prov:RAZ BAILON MD 08/10/21 Ondansetron (Zofran) 4 Mg Tab, 4 MG PO Q8HP PRN for 5 Days, #10 MG Prov:ALISA DIAZ MD 05/01/21 Methylprednisolone (Medrol Dosepak) 4 Mg Roshan, 4 MG PO UD, #21 TAB UAD Prov:ALISA DIAZ MD 05/01/21 Reported Medications Omeprazole Magnesium (Omeprazole) 20 Mg Tab, 40 MG PO DAILY, TAB 10/25/24 Hctz (Hydrochlorothiazide) 25 Mg Tab, 1 TAB PO DAILY 10/25/24 Ergocalciferol (Vitamin D) 50,000 Unit Cap, 1 CAP PO QWEEKLY 10/25/24 Atorvastatin Calcium (ATORVASTATIN CALCIUM) 20 Mg Tab, 1 TAB PO DAILY 08/17/24 Hydrochlorothiazide (Hydrochlorothiazide) 25 Mg Tab, 25 MG PO DAILY for 30 Days, MG 11/29/20 Home Meds Home medications reviewed. Current Medications Current Medications Medications (Trade) Dose Ordered Sig/Giuseppe Route PRN Reason Start Time Stop Time Status Last Admin Sodium Chloride (Saline Lock Ns) 10 ml Q8HR IV 10/25/24 22:00 10/26/24 14:35 Docusate Sodium (Colace Capsule) 100 mg BIDPRN PRN PO FOR CONSTIPATION 10/25/24 18:15 Acetaminophen (Tylenol Tablet) 650 mg Q6HP PRN PO PAIN SCALE 1-3 OR TEMP>100.4 10/25/24 18:15 Acetaminophen/ Hydrocodone Bitart ([place] 5/325MG Tab) 1 tab Q4HP PRN PO MODERATE PAIN (4-6 PAIN SCALE) 10/25/24 18:15 Hydromorphone HCl (Dilaudid Injection) 0.5 mg Q4HP PRN IV SEVERE PAIN (7-10 PAIN SCALE) 10/25/24 18:15 10/25/24 20:03 Ondansetron HCl (Zofran) 4 mg Q4HP PRN IV NAUSEA / VOMITING 10/25/24 18:15 Enoxaparin Sodium (Lovenox) 40 mg DAILY SC 10/26/24 10:00 10/26/24 09:07 Nitroglycerin (Ntrostat Sublingual) 0.4 mg Q5MINP PRN SL FOR CHEST PAIN 10/25/24 18:15 Morphine Sulfate 2 mg Q30M PRN IV FOR CHEST PAIN 10/25/24 18:15 Hold Atorvastatin Calcium (Lipitor) 20 mg HS PO 10/26/24 22:00 Hydrochlorothiazide (hydroCHLOROthiazide TABLET) 25 mg DAILY PO 10/26/24 10:00 10/26/24 09:07 Pantoprazole Sodium (Protonix Tablet) 40 mg DAILY PO 10/26/24 10:00 10/26/24 09:07 Alprazolam (Xanax Tablet) 1 mg Q8HPRN PRN PO ANXIETY 10/26/24 13:00 10/26/24 13:13 Alprazolam (Xanax Tablet) 1 mg [id number] PRN PO ANXIETY 10/26/24 16:00 10/26/24 16:22 DC Review of Systems Constitutional: No symptom reported Ears, Nose, & Throat: No symptom reported Eyes: No symptom reported Neurological: No symptoms reported Pulmonary/Respiratory: No symptoms reported Cardiovascular: Chest pain Gastrointestinal: No symptom reported Genitourinary: No symptom reported Musculoskeletal: No symptom reported Skin: No symptom reported Psychiatric: No symptom reported Endocrine: No symptom reported Hematologic/Lymphatic: No symptom reported Vital Signs Vital Signs Date Time Temp Pulse Resp B/P (MAP) Pulse Ox O2 Delivery O2 Flow Rate FiO2 10/26/24 17:13 97.2 91 16 109/89 (96) 98 97.2 10/26/24 08:00 Room Air* 0 21 Physical Exam General Appearance: Cooperative. Well-developed. Well-nourished. No acute distress. Pulmonary/Respiratory: Clear, bilateral breaths sounds. Cardiovascular/Chest: Regular rate and rhythm. Peripheral Pulses: 2+ Radial (R). 2+ Radial (L). 2+ Pedal (R). 2+ Pedal (L) Abdominal Exam: Normal bowel sounds. Ankle Exam: Negative ankle edema Lower extremities: Negative lower extremity edema Neuro/Mental Status: A/OX4, coherent. Thoughts/Psych: Normal thought pattern. Appropriate mood and affect. Good judgment and insight. Appearance: No acute distress. Skin Exam: Normal inspection. Normal color. Warm and dry. Labs/Diagnostic Data Labs Test 10/26/24 07:10 10/25/24 20:02 10/25/24 11:04 Range/Units White Blood Count 3.5 L 4.4-10.8 10^3/uL Red Blood Count 4.65 4.0-5.20 10^6/uL Hemoglobin 10.7 L 12.2-16.2 g/dL Hematocrit 33.4 L 36.0-46.0 % Mean Corpuscular Volume 71.7 L 80.0-100.0 fL Mean Corpuscular Hemoglobin 23.1 L 28.0-32.0 pg Mean Corpuscular Hemoglobin Concent 32.1 32.0-36.0 g/dL Red Cell Distribution Width 19.5 H 11.8-14.3 % Platelet Count 216 140-450 10^3/uL Mean Platelet Volume 7.3 6.9-10.8 fL Neutrophils (%) (Auto) 49.7 37.0-80.0 % Lymphocytes (%) (Auto) 34.8 10.0-50.0 % Monocytes (%) (Auto) 10.3 0.0-12.0 % Eosinophils (%) (Auto) 4.0 0.0-7.0 % Basophils (%) (Auto) 1.2 0.0-2.0 % Neutrophils # (Auto) 1.7 1.6-8.6 10 ^3/uL Lymphocytes # (Auto) 1.2 0.4-5.4 10 ^3/uL Monocytes # (Auto) 0.4 0-1.3 10 ^3/uL Eosinophils # (Auto) 0.1 0-0.8 10 ^3/uL Basophils # (Auto) 0 0-0.2 10 ^3/uL Nucleated Red Blood Cells 0.1 % Sodium Level 140 136-145 mmol/L Potassium Level 3.3 L 3.5-5.1 mmol/L Chloride Level 104 98-107 mmol/L Carbon Dioxide Level 28 20-31 mmol/L Anion Gap 8 5-15 Blood Urea Nitrogen 9 9-23 mg/dL Creatinine 1.00 0.550-1.02 mg/dL Glomerular Filtration Rate Calc 70 >90 mL/min BUN/Creatinine Ratio 9.0 L 10.0-20.0 Serum Glucose 86 74-106 mg/dL Calcium Level 10.2 8.7-10.4 mg/dL Total Bilirubin 0.4 0.2-1.0 mg/dL Aspartate Amino Transferase (AST) 22 13-40 U/L Alanine Aminotransferase (ALT) 20 7-40 U/L Alkaline Phosphatase 58 46-116 U/L Total Protein 6.7 5.7-8.2 g/dL Albumin 4.4 3.2-4.8 g/dL Urine Color Light-yellow Yellow Urine Clarity Clear Clear Urine pH 7.0 5.0-9.0 Urine Specific [place] 1.010 1.001-1.035 Urine Protein Negative Negative Urine Ketones Negative Negative Urine Blood Negative Negative /uL Urine Nitrite Negative Negative Urine Bilirubin Negative Negative Urine Urobilinogen Normal Negative mg/dL Urine Leukocyte Esterase Negative Negative /uL Urine RBC 1 0 - 4 /hpf Urine Microscopic WBC 2 0-5 /HPF Urine Squamous Epithelial Cells Few <5 /hpf Urine Bacteria Few H None Seen /hpf Urine Glucose Normal Normal mg/dL Troponin I High Sensitivity < 3 L </=34 ng/L Assessment Chest pain, noncardiac Hypertension Dyslipidemia Tobacco use Marijuana use Plan/Recommendation We will continue with the following plan/recommendations (Dr. Yip): Case discussed with . The patient presents with reproducible chest pain. Given the patient's clinical presentation, negative troponin level, and unremarkable twelve lead electrocardiogram, doubt ACS. A transthoracic echocardiogram from 08/18/2024 reveals an EF of 60% with normal valves. There is no further inpatient cardiac workup indicated at this time. Continue with blood pressure control and lipid-lowering agent. The patient states that she has an outpatient stress test scheduled next month with her primary retinal surgeon. Patient to follow up with her primary retinal surgeon . Cardiology will sign off. Thank you for allowing us to care for this patient. Please call with any questions or concerns. Critical care time spent: 44 minutes This medical document was created using an electronic medical record system with voice recognition software and computerized dictation system. Although this document has been carefully reviewed, there might still be some phonetic and typographical errors. Occasional wrong-word or ``sound-alike substitutions may have occurred due to the inherent limitations of voice recognition software. These areas are purely typographical due to imperfections of the software programs and do not reflect any compromise in the patient's medical care. Ple ase read the chart carefully and recognize, using context, where these substitutions have occurred. Plan discussed with: Patient NYHA Physical activity limitations: NA Date of Service: Oct 26, 2024 Billing Provider: GENO ZUNIGA Cardiology Common Codes: [id number] INP/OBS CARE (High) Cardiology Consultation Codes: [id number] CONSULT <45MIN GENO ZUNIGA Oct 26, 2024 17:42
[2024-10-26] MEDS: ATORVASTATIN 20 MG TAB PO SCH (20:55)
[2024-10-26] MEDS: DOCUSATE SOD 100 MG CAP PO PRN (21:03)
[2024-10-27 01:00] VITALS: BP 133/82; PULSE 82; RESP 18; TEMP 97.6; O2SAT 95
[2024-10-27 05:00] VITALS: BP 113/80; PULSE 86; RESP 18; TEMP 97.9; O2SAT 96
[2024-10-27 05:18] LABS: Hemoglobin 10.6 g/dL (12.2-16.2); Nucleated Red Blood Cells % 0.0 %
[2024-10-27 05:21] LABS: Hematocrit 32.4 % (36.0-46.0); Mean Corpuscular Hemoglobin 23.3 pg (28.0-32.0); Mean Corpuscular Volume 71.0 fL (80.0-100.0)
[2024-10-27 05:32] LABS: Alanine Aminotransferase 20 U/L (7-40); Albumin 4.3 g/dL (3.2-4.8); Alkaline Phosphatase 66 U/L (46-116); Anion Gap 10 (5-15); BUN/Creatinine Ratio 11.9 (10.0-20.0); Blood Urea Nitrogen 12 mg/dL (9-23); Calcium 10.0 mg/dL (8.7-10.4); Carbon Dioxide 28 mmol/L (20-31); Chloride 101 mmol/L (98-107); Glucose 92 mg/dL (74-106); Potassium 3.5 mmol/L (3.5-5.1); Sodium 139 mmol/L (136-145); Total Protein 6.7 g/dL (5.7-8.2)
[2024-10-27 05:39] LABS: Bilirubin, Total 0.3 mg/dL (0.2-1.0)
[2024-10-27 09:00] VITALS: BP 137/83; PULSE 83; RESP 20; TEMP 97.2; O2SAT 94
[2024-10-27] MEDS ORDERED: NAP500T PO (12:41)
--- NOTE | 2024-10-27 12:43 | DVHDS2 ---
Discharge Summary Date of Admission Oct 25, 2024 at 18:13 Date of Discharge: Oct 27, 2024 Labs/Diagnostic Data: Laboratory Results Test 10/27/24 04:19 10/25/24 20:02 10/25/24 11:04 White Blood Count 4.3 10^3/uL (4.4-10.8) Red Blood Count 4.56 10^6/uL (4.0-5.20) Hemoglobin 10.6 g/dL (12.2-16.2) Hematocrit 32.4 % (36.0-46.0) Mean Corpuscular Volume 71.0 fL (80.0-100.0) Mean Corpuscular Hemoglobin 23.3 pg (28.0-32.0) Mean Corpuscular Hemoglobin Concent 32.7 g/dL (32.0-36.0) Red Cell Distribution Width 19.8 % (11.8-14.3) Platelet Count 224 10^3/uL (140-450) Mean Platelet Volume 7.7 fL (6.9-10.8) Neutrophils (%) (Auto) 45.0 % (37.0-80.0) Lymphocytes (%) (Auto) 41.2 % (10.0-50.0) Monocytes (%) (Auto) 9.3 % (0.0-12.0) Eosinophils (%) (Auto) 3.3 % (0.0-7.0) Basophils (%) (Auto) 1.2 % (0.0-2.0) Neutrophils # (Auto) 1.9 10 ^3/uL (1.6-8.6) Lymphocytes # (Auto) 1.8 10 ^3/uL (0.4-5.4) Monocytes # (Auto) 0.4 10 ^3/uL (0-1.3) Eosinophils # (Auto) 0.1 10 ^3/uL (0-0.8) Basophils # (Auto) 0.1 10 ^3/uL (0-0.2) Nucleated Red Blood Cells 0.0 % Sodium Level 139 mmol/L (136-145) Potassium Level 3.5 mmol/L (3.5-5.1) Chloride Level 101 mmol/L (98-107) Carbon Dioxide Level 28 mmol/L (20-31) Anion Gap 10 (5-15) Blood Urea Nitrogen 12 mg/dL (9-23) Creatinine 1.01 mg/dL (0.550-1.02) Glomerular Filtration Rate Calc 70 mL/min (>90) BUN/Creatinine Ratio 11.9 (10.0-20.0) Serum Glucose 92 mg/dL (74-106) Calcium Level 10.0 mg/dL (8.7-10.4) Total Bilirubin 0.3 mg/dL (0.2-1.0) Aspartate Amino Transferase (AST) 18 U/L (13-40) Alanine Aminotransferase (ALT) 20 U/L (7-40) Alkaline Phosphatase 66 U/L (46-116) Total Protein 6.7 g/dL (5.7-8.2) Albumin 4.3 g/dL (3.2-4.8) Urine Color Light-yellow (Yellow) Urine Clarity Clear (Clear) Urine pH 7.0 (5.0-9.0) Urine Specific [place] 1.010 (1.001-1.035) Urine Protein Negative (Negative) Urine Ketones Negative (Negative) Urine Blood Negative /uL (Negative) Urine Nitrite Negative (Negative) Urine Bilirubin Negative (Negative) Urine Urobilinogen Normal mg/dL (Negative) Urine Leukocyte Esterase Negative /uL (Negative) Urine RBC 1 /hpf (0 - 4) Urine Microscopic WBC 2 /HPF (0-5) Urine Squamous Epithelial Cells Few /hpf (<5) Urine Bacteria Few /hpf (None Seen) Urine Glucose Normal mg/dL (Normal) Troponin I High Sensitivity < 3 ng/L (</=34) Other Laboratory Tests 10/27/24 04:19 Brief Hx & Hospital Course: 44-year-old female BIBA with prior medical history of hypertension, high lipids, anxiety in the chief complaint of generalized weakness. EMS report that the patient has had generalized weakness, shortness a breath, was chest left anterior chest pain all during the past two days. Patient notes that the chest pain is squeeze like on palpation. Patient States on having bilateral leg swelling for the past year, which subsided on their own, the leg swelling are on and off. 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 Denies chills, fever, N/V/D. No other associated symptoms, modifiers, recent injuries or sick contacts present at this time. Anxiety Chest pain rule out ACS HTN HLD per cardiology, pt has a scheduled stress test, therefore pt can f/u with outpt cardiology Condition at Discharge: Fair Final Diagnosis/Problems List see above Discharge Disposition: Home Discharge Instruct/Medications Diet: Cardiac 2g Na,low cholest Activity: No Restrictions, As Tolerated Scheduled Atorvastatin Calcium (Atorvastatin Calcium), 1 TAB PO DAILY, (Reported) Ergocalciferol (Vitamin D), 1 CAP PO QWEEKLY, (Reported) Hctz (Hydrochlorothiazide), 1 TAB PO DAILY, (Reported) Hydrochlorothiazide (Hydrochlorothiazide), 25 MG PO DAILY, (Reported) Methylprednisolone (Medrol Dosepak), 4 MG PO UD Naproxen (Naprosyn Tablet), 1 TAB PO BID Omeprazole Magnesium (Omeprazole), 40 MG PO DAILY, (Reported) Prednisone (Prednisone), 10 MG PO DAILY Scheduled PRN Ondansetron (Zofran), 4 MG PO Q8HP PRN Pantoprazole Sodium Sesquihydr (Protonix), 40 MG PO DAILY PRN Discharge Statement: "Patient was advised to return to the ER or call 911 if any headaches, dizziness, shortness of breath, chest pain, abdominal pain, bleeding, fevers, or worsening of medical condition. Patient was counseled about treatment plan, medications, possible side effects, patientverbalized understanding. All questions were answered to the best of my ability. This discharge took greater then 30 minutes in planning, reviewing documentation, counseling the patient, and discussing with other team members." ASSESSMENT ASSESSMENT Assessment Date of Service: Oct 27, 2024 Billing Provider: LUCIE VU DO Common Visit Codes: 41460-BDD/OBS DISCH DAY >30min LUCIE VU DO Oct 27, 2024 12:43
[2024-10-27 14:18] VITALS: BP 137/83; PULSE 83; RESP 20; TEMP 97.2; O2SAT 94
--- NOTE | 2024-10-28 09:26 | ECG ---
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
--- NOTE | 2024-11-01 07:16 | ECG ---
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
== END 2024-10-27 15:10 | disposition home or self-care (01) | DRG 203 ==
LOC: ER 09:08 → EDBD 09:08 → OVERFLOW 18:13 → WEST WING 18:20 → TELE-WESTW 10-27 04:17 → WEST WING 10-27 04:23
PROVIDERS: ADMIT Internal Medicine; ATTEND Internal Medicine
DX: M94.0 Chondrocostal junction syndrome [Tietze] (principal); E78.5 Hyperlipidemia, unspecified; F41.9 Anxiety disorder, unspecified; I10 Essential (primary) hypertension; Z88.5 Allergy status to narcotic agent; Z87.59 Personal history of other complications of pregnancy, childbirth and the puerperium; Z83.3 Family history of diabetes mellitus; Z82.49 Family history of ischemic heart disease and other diseases of the circulatory system; Z82.3 Family history of stroke; Z90.721 Acquired absence of ovaries, unilateral; Z87.891 Personal history of nicotine dependence; Z79.899 Other long term (current) drug therapy
CPT/HCPCS: 36415; 80048; 80053; 81001; 84484; 85025; 93005; 96361; 96374; G0378

== ENCOUNTER 2025-01-20 11:37 | Emergency (ER) | payer MEDICAID ==
[~2025-01-20] VITALS: Ht 165.1 cm; Wt 81.0 kg
[~2025-01-20 11:37] MED LIST changes: +ERGO1CAP12 PO; +HYDR25TA5 PO; +NAP500T PO; +OMEP-434 PO
--- NOTE | 2025-01-20 12:57 | DVH ---
CHEST RADIOGRAPH Indication: sob Technique: Single frontal view of the chest was obtained Comparison: XY CHEST PORTABLE on DOS: 08/17/24, XR CHEST 1 VIEW on DOS: 10/13/22, CXRP on DOS: 08/10/21 FINDINGS: Lines and Tubes: None Lungs: No focal consolidation. Pleura: No effusion. No pneumothorax. Cardiomediastinal contours: Unremarkable Bones: No acute osseous abnormality. IMPRESSION: 1. No acute cardiopulmonary disease. 2. No significant change from 08/17 2024.
--- NOTE | 2025-01-20 13:07 | ED.PDOC ---
History of Present Illness HPI Comments 44 y/o F presents with c/c of nonradiating, substernal chest pain and shortness of breath. Significant history of anxiety, HLD, HTN, pre-DM, kidney stones, and polysubstance abuse. Patient reports on sudden, unprovoked, and atraumatic onset of pain, which awoke her from her sleep, this morning. Denies any nausea, vomiting, cough, congestion, or further acute symptoms. Chief Complaint: Shortness of Breath Time Seen by MD: 12:20 Primary Care Provider: [facility] Reviewed Notes: Nurses Notes, Medications, Allergies Allergies: Coded Allergies: Codeine (Verified Allergy, Severe, 11/11/20) Home Meds Active Scripts Naproxen (NAPROSYN TABLET) 500 Mg Tb, 1 TAB PO BID for 10 Days, #20 TAB 1 Refill Prov:LUCIE VU DO 10/27/24 Pantoprazole Sodium Sesquihydr (Protonix) 40 Mg Tab, 40 MG PO DAILY PRN for 7 Days, #7 TAB Prov:RAZ BAILON MD 08/10/21 Prednisone (Prednisone) 10 Mg [place], 10 MG PO DAILY for 7 Days, #7 PACK Prov:RAZ BAILON MD 08/10/21 Ondansetron (Zofran) 4 Mg Tab, 4 MG PO Q8HP PRN for 5 Days, #10 MG Prov:ALISA DIAZ MD 05/01/21 Methylprednisolone (Medrol Dosepak) 4 Mg [place], 4 MG PO UD, #21 TAB UAD Prov:ALISA DIAZ MD 05/01/21 Reported Medications Omeprazole Magnesium (Omeprazole) 20 Mg Tab, 40 MG PO DAILY, TAB 10/25/24 Hctz (Hydrochlorothiazide) 25 Mg Tab, 1 TAB PO DAILY 10/25/24 Ergocalciferol (Vitamin D) 50,000 Unit Cap, 1 CAP PO QWEEKLY 10/25/24 Atorvastatin Calcium (ATORVASTATIN CALCIUM) 20 Mg Tab, 1 TAB PO DAILY 08/17/24 Hydrochlorothiazide (Hydrochlorothiazide) 25 Mg Tab, 25 MG PO DAILY for 30 Days, MG 11/29/20 Information Source: Patient Mode of Arrival: Ambulatory Severity: Moderate Timing: Hours Duration: Since onset Prehospital treatment: None Past Medical History PAST MEDICAL HISTORY: Anxiety, High Lipids, HTN, Kidney Stones Past Medical History (Other): 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 Family History Family History: Reviewed,noncontributory to illness, Unknown Social History Smoker: Cigarettes Alcohol: Occasionally Drugs: Marijuana Lives In: Home All Other Systems: Reviewed and Negative (Comprehensive review of systems are negative unless stated in HPI) Physical Exam General Appearance: Moderate Distress HEENT: Normal ENT Inspection, Pharynx Normal, TMs Normal Neck: Full Range of Motion, Non-Tender, Normal, Normal Inspection Respiratory: Chest Non-Tender, Lungs Clear, No Accessory Muscle Use, No Respiratory Distress, Normal Breath Sounds Cardiovascular: No Edema, No JVD, No Murmur, No Gallop, Normal Peripheral Pulses, Regular Rate/Rhythm Breast Exam: Deferred Gastrointestinal: No Organomegaly, Non Tender, No Pulsatile Mass, Normal Bowel Sounds, Soft Genitalia: Deferred Pelvic: Deferred Rectal: Deferred Extremities: No calf tenderness, Normal capillary refill, Normal inspection, Normal range of motion, Non-tender, No pedal edema Musculoskeletal : Apperance: Normal Neurologic: Alert, calliope player II-XII nml as Tested, No Motor Deficits, Normal Affect, Normal Mood, No Sensory Deficits Cerebellar Function: Normal Reflexes: Normal Skin: Dry, Normal Color, Warm Peripheral Pulses: 3+ Radial (R), 3+ Radial (L) Lymphatic: No Adenopathy Was a procedure done? Was a procedure done?: No EKG EKG : Pulse Rate (adult): 63 [place]: Normal Cardiac Rhythm: NSR, PAC's Block: None Hypertrophy: None ST: Normal Differential Dx Considerations may include: [place], PE, ACS, URI, PNA, angina, anxiety, gastritis, cholelithiasis, cholecystitis, among others X-Ray, Labs, Meds, VS Vital Signs Date Time Temp Pulse Resp B/P (MAP) Pulse Ox O2 Delivery O2 Flow Rate FiO2 01/20/25 15:51 98.3 71 18 109/71 (84) 100 98.3 01/20/25 14:50 139/77 01/20/25 13:50 139/101 01/20/25 13:48 18 Room Air 0 01/20/25 13:47 100 Room Air* 0 21 01/20/25 13:43 98.8 78 18 137/101 (113) 100 98.8 01/20/25 13:16 63 01/20/25 13:07 130 01/20/25 11:51 98.0 76 16 160/103 98 98.0 01/20/25 11:45 63 Lab Test 01/20/25 14:18 01/20/25 12:53 01/20/25 11:58 Range/Units Urine Color Light-yellow Yellow Urine Clarity Clear Clear Urine pH 5.5 5.0-9.0 Urine Specific [place] 1.019 1.001-1.035 Urine Protein Negative Negative Urine Ketones Trace Negative Urine Blood Negative Negative /uL Urine Nitrite Negative Negative Urine Bilirubin Negative Negative Urine Urobilinogen Normal Negative mg/dL Urine Leukocyte Esterase Negative Negative /uL Urine RBC <1 0 - 4 /hpf Urine Microscopic WBC < 1 0-5 /HPF Urine Squamous Epithelial Cells Few <5 /hpf Urine Bacteria None seen None Seen /hpf Urine Glucose Normal Normal mg/dL Troponin I High Sensitivity < 3 L < 3 L </=34 ng/L White Blood Count 4.4 4.4-10.8 10^3/uL Red Blood Count 4.83 4.0-5.20 10^6/uL Hemoglobin 11.1 L 12.2-16.2 g/dL Hematocrit 35.5 L 36.0-46.0 % Mean Corpuscular Volume 73.6 L 80.0-100.0 fL Mean Corpuscular Hemoglobin 23.0 L 28.0-32.0 pg Mean Corpuscular Hemoglobin Concent 31.2 L 32.0-36.0 g/dL Red Cell Distribution Width 22.0 H 11.8-14.3 % Platelet Count 273 140-450 10^3/uL Mean Platelet Volume 7.7 6.9-10.8 fL Neutrophils (%) (Auto) 57.6 37.0-80.0 % Lymphocytes (%) (Auto) 32.2 10.0-50.0 % Monocytes (%) (Auto) 6.9 0.0-12.0 % Eosinophils (%) (Auto) 2.7 0.0-7.0 % Basophils (%) (Auto) 0.6 0.0-2.0 % Neutrophils # (Auto) 2.5 1.6-8.6 10 ^3/uL Lymphocytes # (Auto) 1.4 0.4-5.4 10 ^3/uL Monocytes # (Auto) 0.3 0-1.3 10 ^3/uL Eosinophils # (Auto) 0.1 0-0.8 10 ^3/uL Basophils # (Auto) 0 0-0.2 10 ^3/uL Nucleated Red Blood Cells 0.1 % Platelet Estimate Adequate Anisocytosis (manual) Slight Ovalocytes Few Sodium Level 142 136-145 mmol/L Potassium Level 4.1 3.5-5.1 mmol/L Chloride Level 109 H 98-107 mmol/L Carbon Dioxide Level 27 20-31 mmol/L Anion Gap 6 5-15 Blood Urea Nitrogen 16 9-23 mg/dL Creatinine 1.03 H 0.550-1.02 mg/dL Glomerular Filtration Rate Calc 68 >90 mL/min BUN/Creatinine Ratio 15.5 10.0-20.0 Serum Glucose 80 74-106 mg/dL Calcium Level 9.8 8.7-10.4 mg/dL Current Medications Medications (Trade) Dose Ordered Sig/Giuseppe Route Start Time Stop Time Status Last Admin Aspirin 325 mg ONCE ONCE PO 01/20/25 13:30 01/20/25 13:31 DC 01/20/25 13:50 Clonidine HCl (Catapres Tablet) 0.2 mg ONCE ONCE PO 01/20/25 13:30 01/20/25 13:31 DC 01/20/25 13:50 [place] [id number] Ph: [phone] DIAGNOSTIC IMAGING Diagnostic Imaging Report : [id number] Signed PATIENT: ANDREW CUMMINGS ACCT: [id number] UNIT: [id number] : 1980 LOC: ER ROOM / BED: / AGE / SEX: 44 / F ADM STATUS: REG ER SERVICE 1228 ORDERING PHYSICIAN: RAZ BAILON MD PROCEDURE(s): CXRP - CHEST PORTABLE REASON: sob ORDER NUMBER(s): [id number], ACCESSION NUMBER(s): [id number] CHEST RADIOGRAPH Indication: sob Technique: Single frontal view of the chest was obtained Comparison: XY CHEST PORTABLE on DOS: 08/17/24, XR CHEST 1 VIEW on DOS: 10/13/22, CXRP on DOS: 08/10/21 FINDINGS: Lines and Tubes: None Lungs: No focal consolidation. Pleura: No effusion. No pneumothorax. Cardiomediastinal contours: Unremarkable Bones: No acute osseous abnormality. IMPRESSION: 1. No acute cardiopulmonary disease. 2. No significant change from 08/17 2024. ATED BY: ANITRA COTTO Jr., DO DICTATED DATE/TIME: 01/20/251254 SIGNED BY: ANITRA COTTO Jr., SIGNED DATE/TIME: 01/20/251254 CC: Patient alert. Complaining of chest discomfort. Has been here many times for the same symptom. Vitals stable. Answering questions. Chest x-ray reviewed does not show any acute changes. EKG reviewed does not show any acute changes. She is comfortable. Was given aspirin. Cardiac marker within normal limits. Blood pressure elevated. Was given clonidine. No leg swelling. No shortness a breath. No discoloration. No acute process. Explained to the patient. Continue monitoring. Was given clonidine. Time of 1ST Reevaluation: 12:50 Reevaluation 1ST: Improved Patient Education/Counseling: Diagnosis, Treatment Family Education/Counseling: No Family Present SEPSIS Sepsis Screen Date sepsis recognized/suspect: Jan 20, 2025 Time Sepsis recognized/suspect: 1153 Recent Procedure: No On Antibiotic Therapy: No Respiratory Rate >20: No Heart Rate >90: No Temp<36 C (96.8 F) or >38.3 C: No SBP <90 or MAP <65 mmHG: No New Acute Mental Status Change: No Is the patient on CPAP, BIPAP,: No Physician Orders Electrocardigram (01/20/25 12:50) Electrocardigram (01/20/25 14:50) Chest Portable (01/20/25 12:28) Vital Signs Date Time Temp Pulse Resp B/P (MAP) Pulse Ox O2 Delivery O2 Flow Rate FiO2 01/20/25 15:51 98.3 71 18 109/71 (84) 100 98.3 01/20/25 14:50 139/77 01/20/25 13:50 139/101 01/20/25 13:48 18 Room Air 0 01/20/25 13:47 100 Room Air* 0 21 01/20/25 13:43 98.8 78 18 137/101 (113) 100 98.8 01/20/25 13:16 63 01/20/25 13:07 130 01/20/25 11:51 98.0 76 16 160/103 98 98.0 01/20/25 11:45 63 Laboratory Tests Test 01/20/25 11:58 White Blood Count 4.4 10^3/uL (4.4-10.8) Medications Medications Dose Ordered Sig/Giuseppe Route Start Time Stop Time Status Last Admin Dose Admin Aspirin 325 mg ONCE ONCE PO 01/20/25 13:30 01/20/25 13:31 DC 01/20/25 13:50 Clonidine HCl 0.2 mg ONCE ONCE PO 01/20/25 13:30 01/20/25 13:31 DC 01/20/25 13:50 Departure 1 Departure Time of Disposition: 13:29 Impression: Primary Impression: Hypertensive emergency Disposition: 01 HOME / SELF CARE / HOMELESS Condition: Good Discharged With: Self Critical Care Note Critical Care Time?: Yes (90 min-critical care time only) Stability Stability form required: No Heart Score Heart Score: Heart Score Response (Comments) Value History Moderate Suspicious 1 EKG Normal 0 Age 45-64 1 Risk Factors 1 or 2 risk factors 1 Troponin Normal limit 0 Total 3 I personally scribed for RAZ BAILON MD ([email or web address]) on 01/20/25 at 13:07. Electronically submitted by Jose Cruz ([email or web address]). I personally scribed for RAZ BAILON MD ([email or web address]) on 01/20/25 at 13:16. Electronically submitted by Jose Cruz ([email or web address]). RAZ BAILON MD Jan 20, 2025 13:07
[2025-01-20 13:33] LABS: Potassium 4.1 mmol/L (3.5-5.1); Sodium 142 mmol/L (136-145)
[2025-01-20 13:34] LABS: Mean Corpuscular Hemoglobin 23.0 pg (28.0-32.0); Mean Corpuscular Volume 73.6 fL (80.0-100.0)
[2025-01-20 13:35] LABS: Anion Gap 6 (5-15); Calcium 9.8 mg/dL (8.7-10.4); Carbon Dioxide 27 mmol/L (20-31)
[2025-01-20 13:36] LABS: Hematocrit 35.5 % (36.0-46.0); Hemoglobin 11.1 g/dL (12.2-16.2); Nucleated Red Blood Cells % 0.1 %
[2025-01-20 13:40] LABS: BUN/Creatinine Ratio 15.5 (10.0-20.0); Blood Urea Nitrogen 16 mg/dL (9-23); Chloride 109 mmol/L (98-107); Glucose 80 mg/dL (74-106)
--- NOTE | 2025-01-20 13:45 | ECG ---
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
[2025-01-20 14:17] LABS: Anisocytosis Slight
[2025-01-20 14:18] LABS: Ovalocytes FEW
[2025-01-20 15:09] LABS: Urine Protein, UAD Negative (Negative)
[2025-01-20 15:51] VITALS: BP 109/71; PULSE 71; RESP 18; TEMP 98.3; O2SAT 100
== END 2025-01-20 16:41 | disposition home or self-care (01) ==
LOC: EDBD 11:37 → EDUNIT# 11:37 → ER 11:37
DX: I16.1 Hypertensive emergency (principal); F12.90 Cannabis use, unspecified, uncomplicated; F10.90 Alcohol use, unspecified, uncomplicated; F17.210 Nicotine dependence, cigarettes, uncomplicated; E78.5 Hyperlipidemia, unspecified; I10 Essential (primary) hypertension; F41.9 Anxiety disorder, unspecified; Z79.899 Other long term (current) drug therapy; Z87.442 Personal history of urinary calculi; Z79.52 Long term (current) use of systemic steroids; Z88.5 Allergy status to narcotic agent; Y90.9 Presence of alcohol in blood, level not specified
CPT/HCPCS: 36415; 71045; 80048; 81001; 84484; 85025; 93005